=== PATIENT | male | born 1945 | race Caucasian/White ===

== ENCOUNTER 2025-01-29 12:59 | Outpatient (AMB) | payer MEDICARE, SELFPAY ==
--- NOTE | 2025-01-29 13:04 | A.OFFPC_ITS ---
Vital Signs 01/29/25 13:39 Height 5 ft 10 in Weight 203 lb 6 oz BMI 29.2 BP 118/64 Blood Pressure Location Rt brachial Position Sitting Respiration 16 Pulse 51 Pulse Source Pulse Oximeter Temp 97.6 F Temp Source Oral Pulse Oximetry (%) 96 Oxygen Delivery Method Room Air Intake Visit Reasons: DEMATOLOGY REFERRAL Intake Note: patient here for new patient visit requesting a dermatology referral. [place] Baker Required: No Allergies bimatoprost (From Lumigan) Allergy (Intermediate, Verified 01/29/25 13:34) burning Penicillins Allergy (Intermediate, Verified 01/29/25 13:34) Rash Medication List - Last Reconciled 01/29/25 by Kieran Lynne CNP albuterol sulfate 90 mcg/actuation (Ventolin HFA) 2 puffs inhalation Q6H PRN amlodipine 5 mg PO DAILY aspirin (Adult Low Dose Aspirin) 81 mg PO 3XW cetirizine (Zyrtec) 10 mg PO DAILY PRN cholecalciferol (vitamin D3) 50 mcg PO DAILY dorzolamide 2% 1 drp ophthalmic (eye) BID hydrochlorothiazide 25 mg PO DAILY magnesium gluconate (Mag-G) 54 mg PO DAILY multivitamin with minerals (Multiple Vitamin-Minerals tablet) 1 tab PO DAILY netarsudil 0.02% (Rhopressa) 1 drp ophthalmic-Right QPM omega 6-tty-psu-fish oil 1,200 (144-216) mg (Fish Oil) caps PO DAILY simvastatin 20 mg PO DAILY telmisartan 80 mg PO DAILY Tobacco use date assessed: 01/29/25 Fall risk assessment: No Falls in past year Last assessed Fall Risk: 01/29/25 Dental Screening Dental Screen Date: 01/29/25 Did you have a dental visit in the last 12 months?: Yes Did you have a dental problem in the last 6 months where you did not have access to dental care?: No Was dental information given to patient?: Patient has dentist HPI HPI Comments History of Present Illness Details 79-year-old male presents to establish c are. He admits to taking his medications as prescribed without adverse reactions. Prior PCP? - [facility], [place] Last office visit -11/2024 Last CPE/labs - 07/2024 Acute issue(s) - Reports multiple skin lesions includin g new lesion to his left lower eyelid. Was followed by Dermatology. Has an appointment to establish care with [facility] in March. Past Medical History - Hypertension, hyperlipidemia, pneumoth orax, glaucoma, cataract, low-grade COPD, diverticulitis, osteoporosis, osteopenia, arthritis both hands, multiple skin cancer, [place] both ear (wears hearing aids), ruptured appendix, Surgical History - cholecystectomy, cataract surgery both eyes Family History - Dad: CVA - MGM: DM - MGF: Cardiovascular disease - PGF: Leukemia Social History - Nonsmoker. Does not vape. Drinks 1 gla ss of wine occasionally. Denies recreational drug use - Has been making healthy dietary choice s. Walks regularly. Generally sleep well Health maintenance - Last eye exam was in 10/10/2024 in [place]. R eferred to Ophthalmology for routine eye exam - Last dental visit was in 10/2024 - Last Tdap vaccine was in 2018. Record not currently available - He is up-to-date on the shingles and p neumonia vaccines - He is up-to-date on the flu vaccines - Last colonoscopy was 3-4 years ago wit h PCP: Normal. He was told he no longer needs colonoscopy - Last dexa scan was 2-3 years ago. Dexa scan ordered Specialists Was followed by pulmonology, Dermatology, Podiatry, audiology Has an appointment with [facility] in 03/25/2025 Requests Ophthalmology and pulmonology referral [facility] Medical History (Updated 01/29/25 @ 14:29 by Kieran Lynne CNP) Ruptured appendix Pneumothorax Surgical History (Updated 01/29/25 @ 13:42 by Patricia Craig MA) Cholecystotomy with removal of foreign body from gallbladder performed Family History (Updated 01/29/25 @ 13:44 by Patricia Craig MA) Maternal Grandmother Diabetes Father Stroke (cerebrum) Maternal Grandfather Cardiovascular disease Paternal Grandfather Leukemia Social History (Updated 01/29/25 @ 13:38 by Patricia Craig MA) Housing: Apartment Patient Tobacco Use Status: Never used Tobacco e-Cigarette/Vaping Use: Never Used service: No Current occupational status: retired Current occupational exposures/hazards: No Cognitive needs: No Hearing needs: Yes Vision needs: Yes Questionnaire PHQ-9 Over the last 2 weeks, how often have you been bothered by any of the following problems? 1. Little interest or pleasure in doing things: not at all 2. Feeling down, depressed, or hopeless: not at all 3. Trouble falling or staying asleep, or sleeping too much: not at all 4. Feeling tired or having little energy: not at all 5. Poor appetite or overeating: not at all 6. Feeling bad about yourself - or that you are a failure or have let yourself or your family down: not at all 7. Trouble concentrating on things, such as reading the newspaper or watching television: not at all 8. Moving or speaking so slowly that other people could have noticed. Or the opposite - being so fidgety or restless that you have been moving around a lot more than usual: not at all 9. Thoughts that you would be better off or of hurting yourself in some way: not at all Total score: 0 Depression Screening Interpretation: Negative Depression Screening Done: Yes 26566 - PHQ-9 Billing: Yes Source: Developed by Drs. Cristian Aguayo, Amberly Gallegos, Nura [place] and colleagues, with an educational adeola from [employer]. Thrive Questionnaire Date Thrive assessed: 01/29/25 I am a: Patient What is your living situation today?: I have a steady place to live Within the past 12 months, did the food you bought not last and you didn't have the money to get more?: Never true Within the past 12 months, did you worry whether your food would run out before you got money to buy more?: Never true Do you have trouble paying for medicines?: No Do you have trouble getting transportation to medical appointments?: No Do you have trouble paying your heating and electricity bill?: No Do you have trouble taking care of your child, family member or friend?: No Do you have trouble with day-to-day activities such as bathing, preparing meals, shopping, managing finances, etc.?: No Are you currently unemployed and looking for a job?: No Are you interested in more education?: No Please select the resources that you would like help with: None Currently or been in a relationship where the following occur: No concerns reported THRIVE Score: 0 AUDIT C Alcohol Use Questionnaire (AUDIT-C) 1. How often do you have a drink containing alcohol?: Monthly or less 2. How many drinks containing alcohol do you have on a typical day when you are drinking?: 1 or 2 3. How often do you have six or more drinks on one occasion?: Never Total Score: 1 Score Reviewed/Action Taken: Yes MEGHAN-7 AMB Questionnaire MEGHAN-7 Date MEGHAN - 7 assessed: 01/29/25 Feeling nervous, anxious, or on edge: 0 = Not at all Not being able to stop or control worryin = Not at all Worrying too much about different things: 0 = Not at all Trouble relaxin = Not at all Being so restless that it is hard to sit still: 0 = Not at all Becoming easily annoyed or irritable: 0 = Not at all Feeling afraid as if something awful might happen: 0 = Not at all Total MEGHAN-7 score (0-4 normal; 5-9 mild; 10-14 moderate; 15-21 severe): 0 Source: Developed by Drs. Cristian Aguayo, Amberly Gallegos, Nura [place] and colleagues, with an educational adeola from [employer]. MEGHAN-7 Assessment Billing MEGHAN-7 Assessment Tool: MEGHAN-7 Assessment 48702 Review of Systems Const Details: Const Denies chills, Denies fatigue, Denies fever(s), Denies headache(s) and Denies weakness ENT Denies dizziness and Denies headache(s) Card Denies chest pain, Denies lightheadedness, Denies dyspnea and Denies other (Palpitations) Resp Denies cough, Denies dyspnea, Denies wheezing and Denies other ( shortness of breath) GI Denies abdominal pain, Denies melena, Denies hematochezia, Denies change in bowel habits, Denies dyspepsia and Denies nausea Denies hematuria and Denies dysuria Musc Denies abnormal gait, Denies myalgias, Denies arthralgias, Denies numbness and Denies tingling Skin/Breast Reports multiple skin lesions Neuro Denies abnormal gait, Denies dizziness, Denies headache(s), Denies memory loss, Denies numbness, Denies Sensory deficit (Neuro), Denies tingling and Denies weakness Psych Denies anxiety, Denies depression, Denies memory loss Endo Denies cold intolerance, Denies fatigue, Denies heat intolerance, Denies polydipsia and Denies polyuria Aller/Immun Denies wheezing Physical exam (Primary Care) Vital Signs: Last Vital Signs Temp 97.6 F 01/29/25 13:39 Pulse 51 01/29/25 13:39 Resp 16 01/29/25 13:39 BP 118/64 01/29/25 13:39 Pulse Ox 96 01/29/25 13:39 Oxygen Delivery Method Room Air 01/29/25 13:39 BMI result Body Mass Index 29.2 Tobacco/Smoking Status: Tobacco use Status Tobacco use date assessed 01/29/25 01/29/25 13:34 Patient Tobacco Use Status Never used Tobacco 01/29/25 13:38 e-Cigarette/Vaping Use Never Used 01/29/25 13:38 PHQ-9: PHQ-9 Score PHQ-9: Total score 0 01/29/25 13:34 Depression Screening Interpretation: Negative Thrive Assessment: Date of Thrive Assessment Date Thrive assessed 01/29/25 01/29/25 13:08 Currently or been in a relationship where the following occur: No concerns reported Const Other: General: no acute distress and well developed Nutritional Appearance: well nourished Orientation/consciousness: patient oriented x3 HENMT Head: Yes normocephalic and Yes atraumatic Eyes General: appearance normal, both eyes and all related structures Pupils: Equal, round and reactive pupils present EOM: EOMs intact bilaterally Resp Effort & Inspection: normal respiratory effort Auscultation: clear to auscultation bilaterally Cardio Rate: regular rate Rhythm: regular rhythm Heart sounds: S1 normal heart sound present, S2 normal heart sound present, no gallops, no murmurs and no rubs GI Palpation (GI): No Abdominal aortic bruit present, Soft to palpation, nontender, No hepatosplenomegaly present and No Rebound tenderness present Auscultation: normal bowel sounds General: Yes no CVA tenderness Back/Spine/Pelvis Back: no CVA tenderness Cervical Spine: cervical ROM normal and No Cervical spine tenderness Thoracic/Lumbar Spine: thoraco-lumbar ROM normal, No pain with thoraco-lumbar ROM, No thoracic spinal tenderness and No lumbar spinal tenderness Extrem General: Yes normal to inspection, No edema and No calf tenderness Skin General: warm and dry. Normal skin color. Normal skin turgor Lesions: Multiple brown-dark brown lesions to his head and trunk. Small, dark- brown lesion below the left eyelid Rashes: no rashes Trauma: no lacerations or abrasions Wounds: no wounds Nails: normal Neuro General: patient oriented x3, gait normal and no focal neuro deficit Cranial nerves: Yes Equal, round and reactive pupils present Cognition (Neuro): normal cognition Gait exam (Neuro): Normal gait present Sensory Exam: No Sensory deficit (Neuro) Psych Appearance: grossly normal Affect: normal affect Attitude: cooperative Thought process: Normal thought process present Coding Level of Care Code New Pt Level 4 (71947) Diagnoses Hypertension I10 COPD (chronic obstructive pulmonary disease) J44.9 Glaucoma H40.9 Osteopenia M85.80 Hyperlipidemia E78.5 Skin lesions L98.9 Additional Codes MEGHAN-7 Assessment Billing - MEGHAN-7 Assessment Tool: MEGHAN-7 Assessment 51303 ([id number]) PHQ-9 - 31695 - PHQ-9 Billing: Yes ([id number]) Assessment & Plan Assessment & Plan (1) Hypertension: Code(s): I10 - Essential (primary) hypertension Category: Medical Plan: Blood pressure is 118/64, within goal of less than 140/90. Continue current treatment regimen. Low-sodium diet encouraged. Advised to fast for 10-12 hours, may drink water, and perform lab work before next visit. Follow-up for a telehealth visit for labs review in 2-4 weeks. Return sooner with symptoms or concerns. Verbalized understanding and agreed with the plan. (2) COPD (chronic obstructive pulmonary disease): Code(s): J44.9 - Chronic obstructive pulmonary disease, unspecified Category: Medical Plan: No acute symptoms. Continue current treatment regimen. Was followed by pulmonology until he recently relocated to [facility]. Referred to [facility] [place]. Follow-up with symptoms or concerns. Verbalized understanding and agreed with the plan. (3) Glaucoma: Code(s): H40.9 - Unspecified glaucoma Category: Medical Plan: History of glaucoma. Last eye exam was in 10/10/2024 in [place]. Referred to Ophthalmology for routine eye exam. (4) Osteopenia: Code(s): M85.80 - Other specified disorders of bone density and structure, unspecified site Category: Medical Plan: Reports history of osteoporosis which improved to osteopenia. Last dexa scan was 2-3 years ago. Dexa scan ordered. (5) Hyperlipidemia: Code(s): E78.5 - Hyperlipidemia, unspecified Category: Medical Plan: Continue current treatment regimen. Advised to limit foods high in saturated fat and avoid foods high in trans fat. Routine exercise encouraged. Will check lipid panel levels and make changes as needed. Verbalized understanding and agreed with the plan. (6) Skin lesions: Code(s): L98.9 - Disorder of the skin and subcutaneous tissue, unspecified Category: Medical Plan: Reports multiple skin lesions including new lesion to his left lower eyelid. Was followed by Dermatology. Has an appointment to establish care with [facility] in March. He has history of multiple skin cancer. Multiple brown-dark brown lesions to his head and trunk. Small, dark-brown lesion below the left eyelid Advised to follow-up with [facility] to establish care as planned. Verbalized understanding and agreed with the plan. Orders: Orders Complete Blood Count Auto Diff Today I10 - Essential (primary) hypertension Comprehensive [place]. Panel Fast Today I10 - Essential (primary) hypertension Lipid Panel Today I10 - Essential (primary) hypertension Microalbumin, Random (w Creat) Today I10 - Essential (primary) hypertension Vitamin D 25-OH Total Today I10 - Essential (primary) hypertension XR DEXA axial skeleton Today M81.0 - Age-related osteoporosis without current pathological fracture PSA, Ultra Sensitive Today I10 - Essential (primary) hypertension TSH reflex Free T4 Today I10 - Essential (primary) hypertension UA CC w/rflx Micro + Cult Today I10 - Essential (primary) hypertension Referrals Pulmonology Referral J44.9 - Chronic obstructive pulmonary disease, unspecified Ophthalmology Referral H40.9 - Unspecified glaucoma
[2025-01-29 13:39] VITALS: BP 118/64; PULSE 51; RESP 16; TEMP 36.4; O2SAT 96; BMI 29.2
--- OUTSIDE RECORDS SUMMARY | 2025-01-29 14:01 | XMS_ITS | Clinical Summary ---
Author Organization [facility] Address [address] [facility] [address] [place] [address] Phone Care Team Providers Care Clinical Trial Specialist Name Role Phone Anand Sarmiento MD Primary Care Provider Social History Tobacco Use Types Packs/Day Years Used Date Smoking Tobacco: Never Education Answer Date Recorded Are you interested in more education? Not on linden e 11/05/2022 Are you concerned about learning? Not on file 11/05/2022 No 11/05/2022 No 11/05/2022 Digital Access Answer Date Recorded No 12/07/2022 No 12/07/2022 No 12/07/2022 Reliable internet access at home? Not on file 12/07/2022 Device with a working camera? Not on file Sex and Gender Information Value Date Recorded Sex Assigned at Not on file Legal Sex Male 7:04 PM EST Gender Identity Not on file Sexual Orientation Not on file Last Filed Vital Signs Vital Sign Reading Time Taken Comments Blood Pressure 114/80 12/14/2017 10:45 AM EDT Pulse 56 12/14/2017 10:45 AM EDT Temperature 36.7 C (98 F) 12/14/2017 10:45 AM EDT Respiratory Rate 16 12/14/2017 10:45 AM EDT Oxygen Saturation - - Inhaled Oxygen Concentration - - Weight 89.4 kg (197 lb) 12/14/2017 10:45 AM EDT Height 180.3 cm (5' 11 ) 12/14/2017 10:45 AM EDT Body Mass Index 27.48 12/14/2017 10:45 AM EDT Plan of Treatment Not on file Medical Devices Not on file Insurance MEDICARE PART A & B [facility] MEDICARE SUPPLEMENT Member Subscriber Plan / Payer ( fective 2017-Present) Name:Yordan Velez Relation to Subscriber:Self Name:Yordan Velez Payer ID:[id number] (NAIC) Group ID:Not on file Type:adRise Address: [facility] [id number] [place] [phone] MEDICARE PART A & B [facility] MEDICARE SUPPLEMENT MEDICARE PART A & B MEDICARE SUPPLEMENT MEDICARE PART A & B MEDICARE SUPPLEMENT MEDICARE PART A & B [facility] MEDICARE SUPPLEMENT MEDICARE PART A & B [facility] MEDICARE SUPPLEMENT MEDICARE PART A & B MEDICARE SUPPLEMENT MEDICARE PART A & B [facility] MEDICARE SUPPLEMENT MEDICARE PART A & B [facility] MEDICARE SUPPLEMENT Care Teams Clinical Trial Specialist Relationship Specialty Start Date End Date Anand Sarmiento MD [address] [place] [address] PCP - General 04/20/19 Additional Source Comments The information contained in this document represents components of the legal health record. It is not the complete legal health record.[facility]
--- OUTSIDE RECORDS SUMMARY | 2025-01-29 14:02 | XMS_ITS | Clinical Summary ---
Author Organization [facility] Address [address] [place] [id number] Care Team Providers Care Referral Rn Name Role Phone Pcp, No Primary Care Provider Unavailabl e Social History Tobacco Use Types Packs/Day Years Used Date Smoking Tobacco: Never Assessed Sex and Gender Information Value Date Recorded Sex Assigned at Not on file Legal Sex Male 4:20 PM EDT Gender Identity Not on file Sexual Orientation Not on file Plan of Treatment Upcoming Encounters Date Type Department Care Team (Late st Contact Info) Description 03/08/2025 1:30 PM EDT Office Visit [facility] [address] [place] [phone] Imani Carey, DO [address] [place] [address] Health Maintenance Due Date Last Done Comments DTaP/Tdap/Td Vaccines (1 - Tdap) 02/17/1963 Pneumococcal Vaccines 50+ (1 of 1 - PCV) 02/17/1994 Zoster (Shingles) Vaccine (1 of 2) 02/17/1994 RSV Vaccine 60 years and old er and Patients (1 - 1-dose 75+ series) 02/17/2019 COVID-19 Vaccine ( - 2023-2 5 season) 2024 Influenza Vaccine 02/08/2025 Hepatitis B Vaccines Aged Out No long er eligible based on patient's age to complete this topic Insurance MEDICARE PART A & B [facility] Care Teams Referral Rn Relationship Specialty Start Date End Date Pcp, No PCP - General General Medicine 12/21/24
--- OUTSIDE RECORDS SUMMARY | 2025-01-29 14:02 | XMS_ITS ---
Author Name [facility] Organization Unknown Care Team Organization Name Specialty Phone Email Start Date End Da [facility] NO PCP Primary Care 12/22/2024
== END 2025-01-29 14:19 | disposition home or self-care (01) ==
LOC: HO.HMCFM 13:00
PROVIDERS: PCP Nurse Practitioner Family; Visit Provider Nurse Practitioner Family
DX: I10 Essential (primary) hypertension (principal); J44.9 Chronic obstructive pulmonary disease, unspecified; H40.9 Unspecified glaucoma; M85.80 Other specified disorders of bone density and structure, unspecified site; E78.5 Hyperlipidemia, unspecified; L98.9 Disorder of the skin and subcutaneous tissue, unspecified

== ENCOUNTER → 2025-01-29 12:59 | Outpatient (BNVA) | payer MEDICARE, SELFPAY | PROVIDERS: PCP Nurse Practitioner Family; Visit Provider Nurse Practitioner Family | DX: I10 Essential (primary) hypertension (principal); J44.9 Chronic obstructive pulmonary disease, unspecified; M85.80 Other specified disorders of bone density and structure, unspecified site; E78.5 Hyperlipidemia, unspecified; L98.9 Disorder of the skin and subcutaneous tissue, unspecified; H40.9 Unspecified glaucoma | CPT/HCPCS: 96127; 99202 ==

== ENCOUNTER 2025-01-31 08:28 | Outpatient (REF) | payer MEDICARE, SELFPAY ==
--- OUTSIDE RECORDS SUMMARY | 2025-01-31 08:49 | XMS_ITS | Clinical Summary ---
Author Organization [facility] Address [address] [place] [id number] Care Team Providers Care Property Analyst Name Role Phone Pcp, No Primary Care [...] Description 03/08/2025 1:30 PM EDT Office Visit [facility] [address] [place] [phone] Imani Carye, DO [address] [place] [address] Health Maintenance Due Date Last Done Comments [...] topic Insurance MEDICARE PART A & B [facility] Care Teams Property Analyst Relationship Specialty Start Date End Date Pcp, No PCP - General General Medicine 12/21/24
--- OUTSIDE RECORDS SUMMARY | 2025-01-31 08:49 | XMS_ITS | Clinical Summary ---
Author Organization [facility] Address [address] [facility] [address] [phone] Phone Care Team Providers Care Instruction Librarian Name Role Phone Anand Sarmiento MD Primary [...] file Insurance MEDICARE PART A & B [facility] MEDICARE SUPPLEMENT Member Subscriber Plan / Payer ( fective 2017-Present) Name:Yordan Velez Relation to Subscriber:Self Name:Yordan Velez Payer ID:[id number] (NAIC) Group ID:Not on file Type:[employer] Address: [facility] [id number] [place] [phone] MEDICARE PART A & B [facility] MEDICARE SUPPLEMENT MEDICARE PART A & B MEDICARE SUPPLEMENT MEDICARE PART A & B MEDICARE SUPPLEMENT MEDICARE PART A & B [facility] MEDICARE SUPPLEMENT MEDICARE PART A & B [facility] MEDICARE SUPPLEMENT MEDICARE PART A & B MEDICARE SUPPLEMENT MEDICARE PART A & B [facility] MEDICARE SUPPLEMENT MEDICARE PART A & B [facility] MEDICARE SUPPLEMENT Care Teams Instruction Librarian Relationship Specialty Start Date End Date Anand Sarmiento MD [address] [place] [address] PCP - General 04/20/19 Additional Source Comments The information contained in this document represents components of the legal health record. It is not the complete legal health record.[facility]
[2025-01-31 11:16] LABS: MANUAL DIFF FLAG NO
[2025-01-31 11:25] LABS: Appearance Urine Clear; Glucose Urine UA Negative (Negative); PH 7.0 (5.0-9.0); Specific Gravity - Urine 1.015 (1.005-1.025)
[2025-01-31 11:30] LABS: Hematocrit 43.5 % (42.0-52.0); Hemoglobin 14.7 g/dl (14.0-18.0); Imm Gran Abs Auto 0.02 X10*3/uL (0.00-0.03); Imm Gran Pct Auto 0.2 % (0.0-0.4); Lymphocytes Absolute Auto 3.7 X10*3/uL (1.2-4.9); Mean Corpuscular HGB Conc 33.8 g/dl (31.0-36.0); Mean Corpuscular Hemoglobin 29.6 pg (27.0-33.0); Mean Corpuscular Volume 87.5 fL (80.0-98.0); NRBC Abs Auto 0.000 X10*3/uL (0.0-0.012); NRBC Pct Auto 0.0 /100WBC (0.0-0.2); Platelet Count 309 X10*3/uL (160-400); Red Blood Count 4.97 X10*6/uL (4.60-5.80); White Blood Count 9.1 X10*3/uL (4.8-10.8)
[2025-01-31 11:56] LABS: Alanine Aminotransferase 24 U/L (0-40); Albumin Level 4.3 g/dL (3.5-5.0); Alkaline Phosphatase 75 U/L (39-117); Anion Gap 13 (12-20); Aspartate Amino Transferase 28 U/L (5-37); Blood Urea Nitrogen 17 mg/dL (9-16); Calcium 9.4 mg/dL (8.4-10.2); Carbon Dioxide 28 mmol/L (22-29); Chloride 102 mmol/L (96-108); Cholesterol 153 mg/dL (<200); Estimated Glomerular Filt Rate > 60; HDL Cholesterol 44 mg/dL (>40); Potassium 3.8 mmol/L (3.3-5.1); Sodium 139 mmol/L (135-145); Total Protein 7.0 g/dL (6.5-8.0); Triglycerides 90 mg/dL (<150)
[2025-01-31 12:00] LABS: Microalbum/Creatinine Ratio Ur 5.4 ug/mg cr (<30)
[2025-02-06 02:39] LABS: PSA, Ultra Sensitive 2.70 ng/mL
== END 2025-01-31 08:29 | disposition home or self-care (01) ==
LOC: HO.WFDLDS 08:28
PROVIDERS: Visit Provider Nurse Practitioner Family
DX: I10 Essential (primary) hypertension (principal)
CPT/HCPCS: 36415; 80053; 80061; 81003; 82043; 82306; 82570; 84153; 84443; 85025

== ENCOUNTER 2025-02-15 12:56 | Outpatient (AMB) | payer MEDICARE, SELFPAY ==
--- NOTE | 2025-02-15 12:47 | A.OFFPC_ITS ---
Intake Visit Reasons: telehealth bloodwork fu Intake Note: Yordan presents in the office today for a telehealth follow up to his recent lab results. Allergies bimatoprost (From Lumigan) Allergy (Intermediate, Verified 02/15/25 12:48) burning Penicillins Allergy (Intermediate, Verified 02/15/25 12:48) Rash Tobacco use date assessed: 02/15/25 Fall risk assessment: No Falls in past year Last assessed Fall Risk: 02/15/25 Dental Screening Dental Screen Date: 02/15/25 Did you have a dental visit in the last 12 months?: Yes Did you have a dental problem in the last 6 months where you did not have access to dental care?: No Was dental information given to patient?: Patient has dentist HPI HPI Comments History of Present Illness Details 79-year-old male presents for telehealth visit for review of recent lab results. He admits to taking his medications as prescribed without adverse reactions. He offers no complaints and denies acute symptoms at this time. [facility] Medical History (Updated 02/15/25 @ 13:51 by Kieran Lynne CNP) Ruptured appendix Pneumothorax Surgical History (Updated 01/29/25 @ 13:42 by Patricia Craig MA) Cholecystotomy with removal of foreign body from gallbladder performed Family History Maternal Grandmother Diabetes Father Stroke (cerebrum) Maternal Grandfather Cardiovascular disease Paternal Grandfather Leukemia Social History (Updated 02/15/25 @ 12:51 by Stefani Martinez MA) Housing: Apartment Alcohol intake: current Patient Tobacco Use Status: Never used Tobacco e-Cigarette/Vaping Use: Never Used Second Hand Smoke Exposure: No service: No Current occupational status: retired Current occupational exposures/hazards: No Cognitive needs: No Hearing needs: Yes Vision needs: Yes Questionnaire Thrive Questionnaire Date Thrive assessed: 01/22/25 I am a: Patient What is your living situation today?: I have a steady place to live Within the past 12 months, did the food you bought not last and you didn't have the money to get more?: Never true Within the past 12 months, did you worry whether your food would run out before you got money to buy more?: Never true Do you have trouble paying for medicines?: No Do you have trouble getting transportation to medical appointments?: No Do you have trouble paying your heating and electricity bill?: No Do you have trouble taking care of your child, family member or friend?: No Do you have trouble with day-to-day activities such as bathing, preparing meals, shopping, managing finances, etc.?: No Are you currently unemployed and looking for a job?: No Are you interested in more education?: No Please select the resources that you would like help with: None Currently or been in a relationship where the following occur: No concerns reported THRIVE Score: 0 MEGHAN-7 AMB Questionnaire MEGHAN-7 Date MEGHAN - 7 assessed: 01/29/25 Source: Developed by Drs. Cristian Aguayo, Amberly Gallegos, Nura Trimble and colleagues, with an educational adeola from [employer]. Review of Systems Const Details: Denies chills, Denies fatigue, Denies fever(s), Denies headache(s) and Denies weakness Cardiac Denies chest pain, Denies claudication, Denies leg edema, Denies lightheadedness, Denies palpitations, Denies dyspnea, Denies dyspnea on exertion, Denies orthopnea and Denies other (Loss of consciousness) Resp Denies cough, Denies excessive phlegm production, Denies dyspnea, Denies dyspnea on exertion, Denies snoring and Denies wheezing Physical exam (Primary Care) Tobacco/Smoking Status: Tobacco use Status Tobacco use date assessed 02/15/25 02/15/25 12:55 Patient Tobacco Use Status Never used Tobacco 02/15/25 12:51 e-Cigarette/Vaping Use Never Used 02/15/25 12:51 Thrive Assessment: Date of Thrive Assessment Date Thrive assessed 01/22/25 02/15/25 12:47 Currently or been in a relationship where the following occur: No concerns reported Const Other: Patient is alert and oriented x3 Telehealth Telehealth Telehealth Platform: Telephone Location of provider rendering services: practice address Location of patient: address on file Patient Identification confirmed using: Name, : Yes Telehealth method: voice only Patient verbally consented to treatment: Yes Patient verbally consented to billing insurance company: Yes Patient informed of any privacy concerns related to visit: Yes Coding Level of Care Code Tele Est Pt Level 3 (05897) Diagnoses Elevated fasting glucose R73.01 Hyperbilirubinemia E80.6 Time Spent (min) 15 Assessment & Plan Assessment & Plan (1) Elevated fasting glucose: Code(s): R73.01 - Impaired fasting glucose Category: Medical Plan: Recent fasting glucose is elevated, 117. Healthy diet and routine exercise encouraged. Fast for 10-12 hours, may drink water, and perform fasting blood work before next visit. Follow-up for telehealth visit in 2-3 weeks. Verbalized understanding and agreed with the plan. (2) Hyperbilirubinemia: Code(s): E80.6 - Other disorders of bilirubin metabolism Category: Medical Plan: Recent bilirubin level is elevated, 1.6. Liver enzymes are normal. 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 Will recheck bilirubin level and make changes as needed. Verbalized understanding and agreed with the plan. Orders: Orders Glucose Fasting Today R73.01 - Impaired fasting glucose Bilirubin Total Today E80.6 - Other disorders of bilirubin metabolism
--- OUTSIDE RECORDS SUMMARY | 2025-02-15 12:58 | XMS_ITS | Clinical Summary ---
Author Organization [facility] Address [address] [employer] [facility] [address] [place] [address] Phone Care Team Providers Care Comb Capper Name Role Phone Anand Sarmiento MD Primary [...] file Insurance MEDICARE PART A & B [facility] MEDICARE SUPPLEMENT Member Subscriber Plan / Payer ( fective 2017-Present) Name:Yordan Velez Relation to Subscriber:Self Name:Yordan Velez Payer ID:[id number] (NAIC) Group ID:Not on file Type:Go Vocab Address: [facility] [id number] [place] [id number] MEDICARE PART A & B [facility] MEDICARE SUPPLEMENT [facility] Address: [facility] [id number] [place] [address] MEDICARE PART A & B MEDICARE SUPPLEMENT [facility] Address: [facility] [id number] [place] [address] MEDICARE PART A & B MEDICARE SUPPLEMENT MEDICARE PART A & B [facility] MEDICARE SUPPLEMENT [facility] Address: [place] [address] MEDICARE PART A & B [facility] MEDICARE SUPPLEMENT MEDICARE PART A & B MEDICARE SUPPLEMENT MEDICARE PART A & B [facility] MEDICARE SUPPLEMENT MEDICARE PART A & B [facility] MEDICARE SUPPLEMENT Care Teams Comb Capper Relationship Specialty Start Date End Date Anand Sarmiento MD [address] [place] [address] PCP - General 04/20/19 Additional Source Comments The information contained in this document represents components of the legal health record. It is not the complete legal health record.[facility]
--- OUTSIDE RECORDS SUMMARY | 2025-02-15 12:58 | XMS_ITS | Clinical Summary ---
Author Organization [facility] Address [address] [place] [address] Care Team Providers Care Straddle Truck Operator Name Role Phone Pcp, No Primary Care [...] Description 03/08/2025 1:30 PM EDT Office Visit [facility] [address] [place] [phone] Imani Carey, DO [address] [place] [address] Health Maintenance Due Date Last Done Comments [...] topic Insurance MEDICARE PART A & B [facility] Care Teams Straddle Truck Operator Relationship Specialty Start Date End Date Pcp, No PCP - General General Medicine 12/21/24
== END 2025-02-15 14:00 | disposition home or self-care (01) ==
LOC: HO.HMCFM 12:56
PROVIDERS: PCP Nurse Practitioner Family; Visit Provider Nurse Practitioner Family
DX: R73.01 Impaired fasting glucose (principal); E80.6 Other disorders of bilirubin metabolism

== ENCOUNTER 2025-02-19 08:03 | Outpatient (REF) | payer MEDICARE, SELFPAY ==
--- OUTSIDE RECORDS SUMMARY | 2025-02-19 08:08 | XMS_ITS | Clinical Summary ---
Author Organization [facility] Address [address] [facility] [address] [place] [address] Phone Care Team Providers Care Therapeutic Consultant Name Role Phone Anadn Sarmiento MD Primary Care Provider Social History [...] file Insurance MEDICARE PART A & B [facility] MEDICARE SUPPLEMENT Member Subscriber Plan / Payer ( fective 2017-Present) Name:Yordan Velez Relation to Subscriber:Self Name:Yordan Velez Payer ID:[id number] (NAIC) Group ID:Not on file Type:[employer] Address: [facility] [id number] [place] [id number] MEDICARE PART A & B [facility] MEDICARE SUPPLEMENT [facility] Address: [facility] [id number] [place] [address] MEDICARE PART A & B MEDICARE SUPPLEMENT [facility] Address: [facility] [id number] [place] [address] MEDICARE PART A & B MEDICARE SUPPLEMENT MEDICARE PART A & B [facility] MEDICARE SUPPLEMENT [facility] Address: [place] [address] MEDICARE PART A & B [facility] MEDICARE SUPPLEMENT MEDICARE PART A & B MEDICARE SUPPLEMENT MEDICARE PART A & B [facility] MEDICARE SUPPLEMENT MEDICARE PART A & B [facility] MEDICARE SUPPLEMENT Care Teams Therapeutic Consultant Relationship Specialty Start Date End Date Anand Sarmiento MD [address] [place] [address] PCP - General 04/20/19 Additional Source Comments The information contained in this document represents components of the legal health record. It is not the complete legal health record.[facility]
--- OUTSIDE RECORDS SUMMARY | 2025-02-19 08:09 | XMS_ITS | Clinical Summary ---
Author Organization [facility] Address [address] [place] [address] Care Team Providers Care Wind Turbine Mechanic Name Role Phone Pcp, No Primary Care [...] Description 03/08/2025 1:30 PM EDT Office Visit [facility] [address] [place] [phone] Imani Carey, DO [address] [place] [address] Health Maintenance Due Date Last Done Comments [...] topic Insurance MEDICARE PART A & B [facility] Care Teams Wind Turbine Mechanic Relationship Specialty Start Date End Date Pcp, No PCP - General General Medicine 12/21/24
== END 2025-02-19 08:04 | disposition home or self-care (01) ==
LOC: HO.WFDLDS 08:03
PROVIDERS: Visit Provider Nurse Practitioner Family
DX: R73.01 Impaired fasting glucose (principal); E80.6 Other disorders of bilirubin metabolism
CPT/HCPCS: 36415; 82247; 82947

== ENCOUNTER 2025-03-18 13:47 | Outpatient (AMB) | payer MEDICARE, SELFPAY ==
--- NOTE | 2025-03-18 13:43 | MHC.PC.OV ---
Intake Visit Reasons: Tele 2-3 wks labs review Intake Note: patient here for 2-3 wks Telehealth follow up for lab review Fueler Required: No Allergies bimatoprost (From Lumigan) Allergy (Intermediate, Verified 03/18/25 13:43) burning Penicillins Allergy (Intermediate, Verified 03/18/25 13:43) Rash Tobacco use date assessed: 03/18/25 Fall risk assessment: No Falls in past year Last assessed Fall Risk: 03/18/25 Dental Screening Dental Screen Date: 03/18/25 Did you have a dental visit in the last 12 months?: Yes Did you have a dental problem in the last 6 months where you did not have access to dental care?: No Was dental information given to patient?: Patient has dentist HPI HPI Comments History of Present Illness Details 80-year-old male, accompanied by his , presents for a telehealth visit for review of recent lab results. He admits to taking his medications as prescribed without adverse reactions. He notes that he has been making healthy lifestyle changes. He offers no complaints and denies acute symptoms at this time. [facility] Medical History (Updated 02/15/25 @ 13:51 by Kieran Lynne CNP) Ruptured appendix Pneumothorax Surgical History (Updated 01/29/25 @ 13:42 by Patricia Craig MA) Cholecystotomy with removal of foreign body from gallbladder performed Family History Maternal Grandmother Diabetes Father Stroke (cerebrum) Maternal Grandfather Cardiovascular disease Paternal Grandfather Leukemia Social History (Updated 02/15/25 @ 12:51 by Stefani Martinez MA) Housing: Apartment Alcohol intake: current Patient Tobacco Use Status: Never used Tobacco e-Cigarette/Vaping Use: Never Used Second Hand Smoke Exposure: No service: No Current occupational status: retired Current occupational exposures/hazards: No Cognitive needs: No Hearing needs: Yes Vision needs: Yes Questionnaire Thrive Questionnaire Date Thrive assessed: 01/29/25 I am a: Patient What is your living situation today?: I have a steady place to live Within the past 12 months, did the food you bought not last and you didn't have the money to get more?: Never true Within the past 12 months, did you worry whether your food would run out before you got money to buy more?: Never true Do you have trouble paying for medicines?: No Do you have trouble getting transportation to medical appointments?: No Do you have trouble paying your heating and electricity bill?: No Do you have trouble taking care of your child, family member or friend?: No Do you have trouble with day-to-day activities such as bathing, preparing meals, shopping, managing finances, etc.?: No Are you currently unemployed and looking for a job?: No Are you interested in more education?: No Please select the resources that you would like help with: None Currently or been in a relationship where the following occur: No concerns reported THRIVE Score: 0 MEGHAN-7 AMB Questionnaire MEGHAN-7 Date MEGHAN - 7 assessed: 01/29/25 Source: Developed by Drs. Cristian Aguayo, Amberly Gallegos, Nura Trimble and colleagues, with an educational adeola from [employer]. Review of Systems Const Details: Denies chills, Denies fatigue, Denies fever(s), Denies headache(s) and Denies weakness Cardiac Denies chest pain, Denies claudication, Denies leg edema, Denies lightheadedness, Denies palpitations, Denies dyspnea, Denies dyspnea on exertion, Denies orthopnea and Denies other (Loss of consciousness) Resp Denies cough, Denies excessive phlegm production, Denies dyspnea, Denies dyspnea on exertion, Denies snoring and Denies wheezing Physical exam (Primary Care) Tobacco/Smoking Status: Tobacco use Status Tobacco use date assessed 03/18/25 03/18/25 13:45 Patient Tobacco Use Status Never used Tobacco 03/18/25 13:45 e-Cigarette/Vaping Use Never Used 03/18/25 13:45 Thrive Assessment: Date of Thrive Assessment Date Thrive assessed 01/29/25 03/18/25 13:45 Currently or been in a relationship where the following occur: No concerns reported Const Other: Patient is alert and oriented x3 Telehealth Telehealth Telehealth Platform: Telephone Location of provider rendering services: practice address Location of patient: address on file Patient Identification confirmed using: Name, : Yes Telehealth method: voice only Patient verbally consented to treatment: Yes Patient verbally consented to billing insurance company: Yes Patient informed of any privacy concerns related to visit: Yes Coding Level of Care Code Tele Est Pt Level 3 (79562) Diagnoses Elevated fasting glucose R73.01 Hyperbilirubinemia E80.6 Time Spent (min) 15 Assessment & Plan Assessment & Plan (1) Elevated fasting glucose: Code(s): R73.01 - Impaired fasting glucose Category: Medical Plan: Recent fasting glucose is slightly elevated, 103, previous level was 117. Routine exercise and healthy diet, including low carbs encouraged. Will check A1c. Follow-up in 1 month. Verbalized understanding and agreed with the plan. (2) Hyperbilirubinemia: Code(s): E80.6 - Other disorders of bilirubin metabolism Category: Medical Plan: Recent total bilirubin is elevated, 1.5, previous level was 1.6. Gilbert syndrome is likely. Will monitor liver enzyme periodically or as needed. Verbalized understanding and agreed with the plan.
--- OUTSIDE RECORDS SUMMARY | 2025-03-18 16:03 | XMS_ITS | Clinical Summary ---
Author Organization [facility] Address [address] [place] [address] Care Team Providers Care Reservoir Engineer Name Role Phone Pcp, No Primary Care Provider Unavailabl e Encounters Date Type Department Care Team Description 03/12/2025 Telephone [facility] [place] [address] [place] [address] Pcp, No 03/07/2025 Telephone [facility] [place] [address] [place] [address] Pcp, No from Last 3 Months Social History Tobacco Use Types Packs/Day Years Used Date Smoking Tobacco: Never Assessed Sex and Gender Information Value Date Recorded Sex Assigned at Not on file Legal Sex Male 4:20 PM EDT Gender Identity Not on file Sexual Orientation Not on file Plan of Treatment Health Maintenance Due Date Last Done Comments Advance Care Planning 1945 DTaP/Tdap/Td Vaccines (1 - Tdap) 02/17/1963 Pneumococcal Vaccines 50+ (1 of 1 - PCV) 02/17/1994 Zoster (Shingles) Vaccine (1 of 2) 02/17/1994 RSV Vaccine 60 years and old er and Patients (1 - 1-dose 75+ series) 02/17/2019 Influenza Vaccine 02/08/2025 COVID-19 Vaccine ( - 2023-2 5 season) 2025 Hepatitis B Vaccines Aged Out No long er eligible based on patient's age to complete this topic Insurance MEDICARE PART A & B [facility] Care Teams Reservoir Engineer Relationship Specialty Start Date End Date Pcp, No PCP - General General Medicine 12/21/24
--- OUTSIDE RECORDS SUMMARY | 2025-03-18 16:03 | XMS_ITS | Clinical Summary ---
Author Organization [facility] Address [address] [employer] [facility] [address] [place] [address] Phone Care Team Providers Care Materials Recycler Name Role Phone Anand Sarmiento MD Primary [...] file Insurance MEDICARE PART A & [place] [address] [place] [address] MEDICARE SUPPLEMENT MEDICARE PART A & B [facility] MEDICARE SUPPLEMENT MEDICARE PART A & B MEDICARE SUPPLEMENT MEDICARE PART A & B MEDICARE SUPPLEMENT MEDICARE PART A & B [facility] MEDICARE SUPPLEMENT MEDICARE PART A & B [facility] MEDICARE SUPPLEMENT MEDICARE PART A & B [facility] MEDICARE SUPPLEMENT MEDICARE PART A & B Member Subscriber Plan / Payer (Ef fective 2009-Present) Name:Yordan Velez Member ID:[id number] Relation to Subscriber:Self Name:Yordan Velez Subscriber ID:[id number] Payer ID:[id number] Group ID:Not on file Type:Medicare Address: [employer] [address] MEDICARE SUPPLEMENT MEDICARE PART A & B [facility] MEDICARE SUPPLEMENT Care Teams Materials Recycler Relationship Specialty Start Date End Date [place], Anand Blaine, MD [address] [facility] [address] [place] [address] PCP - General 04/20/19 Additional Source Comments The information contained in this document represents components of the legal health record. It is not the complete legal health record.[facility]
== END 2025-03-18 14:43 | disposition home or self-care (01) ==
LOC: HO.HMCFM 13:47
PROVIDERS: PCP Nurse Practitioner Family; Visit Provider Nurse Practitioner Family
DX: R73.01 Impaired fasting glucose (principal); E80.6 Other disorders of bilirubin metabolism

== ENCOUNTER 2025-03-28 14:20 | Outpatient (REF) | payer MEDICARE, SELFPAY ==
--- NOTE | ~2025-03-28 | MM_ITS ---
EXAMINATION: DXA BONE DENSITY AXIAL HISTORY: M81.0 - Age-related osteoporosis without current pathological fracture TECHNIQUE: Ventrix Dual energy absorptiometry (DEXA) of the lumbar spine, total left hip, and femoral neck was performed. COMPARISON: There are no prior studies for comparison. FINDINGS: The bone mineral density of the lumbar spine is 1.043 g/cm2, corresponding to a T-score of -1.4, and a Z-score of -1.1. This is indicative of osteopenia. The bone mineral density of the left total hip is 0.858 g/cm2, corresponding to a T-score of -1.7, and a Z-score of -0.8. This is indicative of osteopenia. The bone mineral density of the left femoral neck is 0.821 g/cm2, corresponding to a T-score of -1.9, and a Z-score of -0.6. This is indicative of osteopenia. FRACTURE RISK: The FRAX index suggests a risk of major osteoporotic fracture of 18.7%, and of hip fracture 13.7%. MM/XR DEXA axial skeleton IMPRESSION: Based on bone mineral density, and according to World Health Organization (WHO) criteria, the diagnosis is consistent with osteopenia. Statistically, 68% of repeat scans fall within 1 SD (+/- 0.010 g/cm2 for AP spine L1-L4) and 1 SD (+/- 0.012 g/cm2 for femur total) FRAX is a trademark of the [employer]'s [employer] Metabolic Bone Disease, a World Health Organization (WHO) Collaborating Center. Electronically signed by: Cristian Jones MD 03/28/2025 02:56 PM EDT
--- OUTSIDE RECORDS SUMMARY | 2025-03-28 16:08 | XMS_ITS | Clinical Summary ---
Author Organization [facility] Address [address] [place] [address] Care Team Providers Care Sustainable Agriculture Faculty Name Role Phone Pcp, No Primary Care Provider Unavailabl e Encounters Date Type Department Care Team Description 03/12/2025 Telephone [facility] [place] [address] [place] [address] Pcp, No 03/07/2025 Telephone [facility] [place] [address] [place] [address] Pcp, No from Last 3 [...] topic Insurance MEDICARE PART A & B [facility] Care Teams Sustainable Agriculture Faculty Relationship Specialty Start Date End Date Pcp, No PCP - General General Medicine 12/21/24
--- OUTSIDE RECORDS SUMMARY | 2025-03-28 16:08 | XMS_ITS | Clinical Summary ---
Author Organization [facility] Address [address] [employer] [facility] [address] [place] [address] Phone Care Team Providers Care Contact Lens Edge Buffer Name Role Phone Anand Sarmiento MD Primary [...] file Insurance MEDICARE PART A & [place] [address] [place] [address] MEDICARE SUPPLEMENT MEDICARE PART A & B [facility] MEDICARE SUPPLEMENT MEDICARE PART A & B MEDICARE SUPPLEMENT MEDICARE PART A & B MEDICARE SUPPLEMENT MEDICARE PART A & B [facility] MEDICARE SUPPLEMENT MEDICARE PART A & B [facility] MEDICARE SUPPLEMENT MEDICARE PART A & B [facility] MEDICARE SUPPLEMENT MEDICARE PART A & B Member Subscriber Plan / Payer (Ef fective 2009-Present) Name:Yordan Velez Member ID:[id number] Relation to Subscriber:Self Name:Yordan Velez Subscriber ID:[id number] Payer ID:[id number] Group ID:Not on file Type:Medicare Address: [employer] [address] MEDICARE SUPPLEMENT MEDICARE PART A & B [facility] MEDICARE SUPPLEMENT Care Teams Contact Lens Edge Buffer Relationship Specialty Start Date End Date [place], Anand Blaine, MD [address] [facility] [address] [place] [address] PCP - General 04/20/19 Additional Source Comments The information contained in this document represents components of the legal health record. It is not the complete legal health record.[facility]
== END 2025-03-28 14:21 | disposition home or self-care (01) ==
LOC: HO.MAMMO 14:20
PROVIDERS: PCP Nurse Practitioner Family; Visit Provider Nurse Practitioner Family
DX: M81.0 Age-related osteoporosis without current pathological fracture (principal)
CPT/HCPCS: 77080

== ENCOUNTER → 2025-03-28 14:21 | Outpatient (BNV) | payer MEDICARE, SELFPAY | PROVIDERS: PCP Nurse Practitioner Family; Visit Provider Radiology Diagnostic Radiology | DX: M81.0 Age-related osteoporosis without current pathological fracture (principal) | CPT/HCPCS: 77080 ==

== ENCOUNTER 2025-04-23 08:26 | Outpatient (AMB) | payer MEDICARE, SELFPAY ==
--- OUTSIDE RECORDS SUMMARY | 2024-09-07 05:02 | XMS_ITS ---
Author Organization [address] [place] [address] [address] [facility] Address [address] [facility] [place], [place] [id number] Care Team Providers Care Recreation Professor Name Role Phone MANJITLORI Primary Care Provider SASHA VELÁSQUEZ [phone] REASON FOR VISIT increase Amlodopine Medications Medication SIG (Take, Route, Frequency, Duration) Notes Start Date End Date Status Amlodipine Besylate 5 MG 1 tablet Orally Once a day for 90 days 09/04/2024 Active Encounters Encounter Location Date Provider Diagnosis [id number] [address] [place], [place] [id number] 09/07/2024 SASHA VELÁSQUEZ Essential (primary) hypertension I10 Assessments Encounter Date Diagnosis (ICD Code) Assessment Notes Treatment Notes Treatment Clinical Notes Section Notes 09/07/2024 Essential (primary) hypertension (ICD-10 - I10) Plan Of Treatment Medication Medication Name Sig Start Date Stop Date Notes Amlodipine Besylate 5 MG 1 tablet Orally Once a day for 90 days 09/04/2024 Progress Notes * Yordan VELEZ TDOB:1945 (79 yo M)Acc No.[id number]:09/07/2024 Patient: Yordan QUINTERO :1945 A ge:79 Y S ex:Male [place] [address] * Refills Refill Amlodipine Besylate Tablet, 5 MG, Orally, 90 Tablet, 1 tablet, Once a day, 90 days, Refills=3 * true * Date: Generated for Tommy read/Wang/Idania on: 08:47 AM EDT
--- OUTSIDE RECORDS SUMMARY | 2024-10-29 04:38 | XMS_ITS ---
Author Organization [address] [place] [address] 89[address] [facility] Address [address] [facility] [address] [place], [place] [id number] Care Team Providers Care Sales Donor Recruitment Representative Name Role Phone LORI SARAVIA Primary Care Provider [phone] SASHA VELÁSQUEZ Unavailable [phone] HUSSEIN GUPTA Unavailable [phone] REASON FOR VISIT Albuterol Refill Medications Medication SIG (Take, Route, Frequency, Duration) Notes Start Date End Date Status Albuterol Sulfate 108 (90 Base) MCG/ACT 1 puff as needed Inhalation every 4 hrs for 30 days verbal orders per Dr. Gupta Active Encounters Encounter Location Date Provider Diagnosis [id number] [address] [place] [address] 10/29/2024 HUSSEIN GUPTA Plan Of Treatment Medication Medication Name Sig Start Date Stop Date Notes Albuterol Sulfate 108 (90 Base) MCG/ACT 1 puff as needed Inhalation every 4 hrs for 30 days verbal orders per Dr. Gupta Progress Notes * Yordan VELEZ TDOB:1945 (79 yo M)Acc No.[id number]:10/29/2024 Patient: Yordan QUINTERO :1945 A ge:79 Y S ex:Male [place] [address] * Refills Refill Albuterol Sulfate Aerosol Powder Breath Activated, 108 (90 Base) MCG/ACT, Inhalation, 1, 1 puff as needed, every 4 hrs, 30 days, Refills=3 * true * Date: Generated for Tommy read/Wang/Idania on: 08:47 AM EDT
--- OUTSIDE RECORDS SUMMARY | 2024-11-02 12:26 | XMS_ITS ---
Author Organization [address] [place] [address] [address] [facility] Address [address] [facility] [address] [place], [place] [id number] Care Team Providers Care Csr Name Role Phone MANJITLORI Pena Primary Care Provider SASHA VELÁSQUEZ Unavailable [phone] HUSSEIN GUPTA Unavailable [phone] REASON FOR VISIT Albuterol HFA Medications Medication SIG (Take, Route, Frequency, Duration) Notes Start Date End Date Status Albuterol Sulfate HFA 108 (90 Base) MCG/ACT 2 puffs Inhalation every 4 hrs for 30 days 11/02/2024 Active Encounters Encounter Location Date Provider Diagnosis [id number] [address] [place] [address] 11/02/2024 HUSSEIN GUPTA Plan Of Treatment Medication Medication Name Sig Start Date Stop Date Notes Albuterol Sulfate 108 (90 Base) MCG/ACT 1 puff as needed Inhalation every 4 hrs verbal orders per Dr. Gupta Albuterol Sulfate HFA 108 (90 Base) MCG/ACT 2 puffs Inhalation every 4 hrs for 30 days 11/02/2024 Progress Notes * AGUSTINYordan TDOB:1945 (79 yo M)Acc No.[id number]:11/02/2024 Patient: Yordan QUINTERO :1945 A ge:79 Y S ex:Male Address:[address], [place] [address] * Refills Start Albuterol Sulfate HFA Aerosol Solution, 108 (90 Base) MCG/ACT, Inhalation, 1 Each, 2 puffs, every 4 hrs, 30 days, Refills=3 Stop Albuterol Sulfate Aerosol Powder Breath Activated, 108 (90 Base) MCG/ACT, Inhalation, 1 puff as needed, every 4 hrs * true * Date: Generated for Tommy read/Wang/Bensonitting on: 1 08:47 AM EDT
--- OUTSIDE RECORDS SUMMARY | 2024-11-13 04:00 | XMS_ITS ---
Author Organization [address] [place] [address] [address] [facility] Address [address] [facility] [address] [place], [place] [id number] Care Team Providers Care Tufting Machine Fixer Name Role Phone LORI SARAVIA Primary Care Provider [phone] SASHA MARTI Unavailable [phone] Allergies Allergen (clinical drug ingredient) Drug/Non Drug Allergy documented on EMR Reaction Allergy Type Onset Date Status DUST MITES Unknown Drug Allergy Active SEASONAL ALLERGIES Unknown Drug Allergy Active Penicillin swelling.Rash Drug Allergy Ac tive REASON FOR VISIT HTN F/U Medications Medication SIG (Take, Route, Frequency, Duration) Notes Start Date End Date Status Telmisartan 80 MG 1 tablet Orally Once a day for 90 days 08/02/2024 Active Amlodipine Besylate 5 MG 1 tablet Orally Once a day for 90 days 09/04/2024 Active Albuterol Sulfate HFA 108 (90 Base) MCG/ACT 2 puffs Inhalation every 4 hrs for 30 days 11/02/2024 Active Vitamin D-3 1000 UNIT 2 capsules Orally Once a day Active Vitamin B-12 500 MCG 1 tablet Orally weekly Active Multivitamins Orally Active Simvastatin 20 MG TAKE 1 TABLET EVERY EVENING for 90 Active Rhopressa 0.02 % 1 drop into affected eye in the evening Ophthalmic Once a day Active Probiotic & Acidophilus Ex St - as directed Orally Active Magnesium Oxide 500 MG 1 capsule Orally Daily Active Fluticasone Propionate 50 MCG/ACT 1 spray in each nostril Nasally Once a day for 30 day(s) Active Fish Oil 1200 MG 1 capsule Orally Once a day Active Dorzolamide HCl 2 % 1 drop into affected eye Ophthalmic Three times a day Active Cetirizine HCl 10 MG 1 tablet Orally Once a day for 30 day(s) Active Hydrochlorothiazide 25 MG TAKE 1 TABLET ONCE DAILY INTHE MORNING for 90 Active Calcium 500 MG 1 tablet with meals Orally Twice a day Active Aspirin 81 MG 1 tablet Orally 3 times a week mon,wedn,fri Active Social History Tobacco Use: Social History Observation Description Date Details (start date - stop date) Former Smoker NA - NA Tobacco Status: Question Answer Notes Patient is a former smoker 11/13/24 Vital Signs Height 70 in 11/13/2024 Weight 204.4 lbs 11/13/2024 BMI 29.33 kg/m2 11/13/2024 Blood pressure systolic 110 mm Hg 11/14/19 25 Blood pressure diastolic 78 mm Hg 025 Temperature 97.5 degrees Fahrenheit 11/14/19 25 Heart Rate 57 /min 11/13/2024 Oximetry 97 11/13/2024 Encounters Encounter Location Date Provider Diagnosis [id number] [address] [place], [place] [id number] 11/13/2024 SASHA MARTI Essential (primary) hypertension I10 Assessments Encounter Date Diagnosis (ICD Code) Assessment Notes Treatment Notes Treatment Clinical Notes Section Notes 11/13/2024 Essential (primary) hypertension (ICD-10 - I10) Blood pressure within goal. Plan: -continue amlodipine 5 mg daily, telmisartan and hydrochlorothiaz daniella-reported no syncope, presyncope or other major side effects-follow up in 6 months 11/13/2024 Other Medical service s provided as primary care provider with longitudinal care relationship with patient involving multiple complexities Plan Of Treatment Treatment Notes Assessment Notes Essential (primary) hypertension Blood pressure within goal. Plan: -continue amlodipine 5 mg daily, telmisartan and hydrochlorothiazide-reported no syncope, presyncope or other major side effects-follow up in 6 months Other Medical services pro vided as primary care provider with longitudinal care relationship with patient involving multiple complexities Next Appt Details Follow Up: 6 Months, Reason: HTN follow up with Dr. Marti Procedure Notes * Category Sub-Category Detail Notes Supervision of Care Documentation of Supervision After the resident spent approximately 30 minutes interviewing the patient, performing physical exam and after the resident and I met to discuss the differential, the possible treatment, I agree with the resident diagnosis and agreed on the diagnostic approach. Progress Notes * Yordan VELEZ TDOB:1945 (79 yo M)Acc No.[id number]:11/13/2024 PROGRESS NOTE Patient: Yordan QUINTERO Appointment Provider: Berry MARTI MD :1945 A ge:79 Y S ex:Male Supervising Provider:MORELIA AYOUB MD Date:11/13/2024 Naman HN#:[id number] Address:[address] [place] [address], [place], [id number] Pcp:LORI SARAVIA Check In:08:00 AM COOKER SYRUP Subjective: * Chief Complaints: * H TN F/U * HPI: P atient History: Problem list: -HTN: Amlodipine 5mg, Telmisartan 80mg and HCTZ 25mg -HLD: on simvastatin 20mg daily, LDL within goal -COPD: controlled, no exacerbations, Gold Group A, follows with Dr. Gupta -Seasonal allergies -Glaucoma -recurrent diverticulitis -osteopenia 79 y old male with above mentioned past medical hx comes to the clinic for HTN follow up. He does not have any complaints this morning. He continues to stay compliant with his medications. He has been monitoring his blood pressure at home and most readings sodium 130s with couple of readings in 150s. He denies any dizziness, syncope, presyncope. He reports no constipation. He reported some ankle swelling that is intermittently present based on his physical activity. He denies any limitation in his physical activity such as chest pain or shortness a breath. * ROS: D enies any syncope, presyncope Denies any chest pain, shortness a breath Denies any limitation physical activity Denies any constipation Reports some ankle swelling. * Medical History: * Surgical History: C holecystectomy Appendectomy Pneumothorax Squamous Cell Carcinoma 11/03/2010Endoscopy 09/22/2015melanoma removal-L arm 08/2017cataract surgery both eyes 05/2019 * Hospitalization/Major Diagno stic Procedure: D enies Past Hospitalization * Family History: M other: 70 yrs. F ather: 77 yrs, CVA, diagnosed with Heart Attack. 1 brother(s) - healthy. 1 son(s) , 1 daughter(s) - healthy. . son juvenile diabetes M - PARKINSON'S F- SUICIDE. * Social History: A lcohol Use Patient u ses alcohol Drinks per occasion: 1 Drinks per week: 0 T obacco Status Patient is a former smoker 11/13/24 number of years 1 0 packs per day 1 E xercise: regular exercise, cardio, strength training. M arital Status: . I llicit Drug Use Patient/Family reports: N o illicit drug use C affeine: 2 cups coffee daily. D rugs: none. O ccupation/Work: retired. * Medications: T akingAlbuterol Sulfate HFA 108 (90 Base) MCG/ACT Aerosol Solution 2 puffs Inhalation every 4 hrs Amlodipine Besylate 5 MG Tablet 1 tablet Orally Once a day Aspirin 81 MG Tablet 1 tablet Orally 3 times a week , Notes to Pharmacist: tue,,tueCalcium 500 MG Tablet 1 tablet with meals Orally Twice a day Cetirizine HCl 10 MG Tablet 1 tablet Orally Once a day Dorzolamide HCl 2 % Solution 1 drop into affected eye Ophthalmic Three times a day Fish Oil 1200 MG Capsule Delayed Release 1 capsule Orally Once a day Fluticasone Propionate 50 MCG/ACT Suspension 1 spray in each nostril Nasally Once a day Hydrochlorothiazide 25 MG Tablet TAKE 1 TABLET ONCE DAILY INTHE MORNING Magnesium Oxide 500 MG Capsule 1 capsule Orally Daily Multivitamins Capsule Orally Probiotic & Acidophilus Ex St - Capsule as directed Orally Rhopressa 0.02 % Solution 1 drop into affected eye in the evening Ophthalmic Once a day Simvastatin 20 MG Tablet TAKE 1 TABLET EVERY EVENING Telmisartan 80 MG Tablet 1 tablet Orally Once a day Vitamin B-12 500 MCG Tablet 1 tablet Orally weekly Vitamin D-3 1000 UNIT Capsule 2 capsules Orally Once a day Medication List reviewed and reconciled with the patientTaking Albuterol Sulfate HFA 108 (90 Base) MCG/ACT Aerosol Solution 2 puffs Inhalation every 4 hrs Taking Amlodipine Besylate 5 MG Tablet 1 tablet Orally Once a day Taking Aspirin 81 MG Tablet 1 tablet Orally 3 times a week , Notes to Pharmacist: tue,,tueTaking Calcium 500 MG Tablet 1 tablet with meals Orally Twice a day Taking Cetirizine HCl 10 MG Tablet 1 tablet Orally Once a day Taking Dorzolamide HCl 2 % Solution 1 drop into affected eye Ophthalmic Three times a day Taking Fish Oil 1200 MG Capsule Delayed Release 1 capsule Orally Once a day Taking Fluticasone Propionate 50 MCG/ACT Suspension 1 spray in each nostril Nasally Once a day Taking Hydrochlorothiazide 25 MG Tablet TAKE 1 TABLET ONCE DAILY INTHE MORNING Taking Magnesium Oxide 500 MG Capsule 1 capsule Orally Daily Taking Multivitamins Capsule Orally Taking Probiotic & Acidophilus Ex St - Capsule as directed Orally Taking Rhopressa 0.02 % Solution 1 drop into affected eye in the evening Ophthalmic Once a day Taking Simvastatin 20 MG Tablet TAKE 1 TABLET EVERY EVENING Taking Telmisartan 80 MG Tablet 1 tablet Orally Once a day Taking Vitamin B-12 500 MCG Tablet 1 tablet Orally weekly Taking Vitamin D-3 1000 UNIT Capsule 2 capsules Orally Once a day Medication List reviewed and reconciled with the patient * Allergies: P enicillin: swelling.RashSEASONAL ALLERGIESDUST MITESno[Allergies Verified] Objective: * Vitals: H t: 70 in, Ht-cm: 177.8 cm, Wt: 204.4 lbs, Wt-k.71 kg, BMI:29.33, Weight Change: 2.6 lbs, Body Surface Area: 2.14, BP:110/78, Temp:97.5F, HR:57, Oxygen sat %:97. * Examination: G eneral Examination: C hest and lungs: Clear to auscultation bilaterally, no crackles, no wheezing Cardiac: S1-S2, regular rate and rhythm, no murmurs Abdomen: Soft, nontender bowel sounds present Extremities: Minimal nonpitting edema present on bilateral ankles. Assessment: * Assessment: 1. E ssential (primary) hypertension - I10 (Primary) Plan: * Treatment: 2. O thers Notes: Medical services provided as primary care provider with longitudinal care relationship with patient involving multiple complexities * Procedures: S upervision of Care: Documentation of Supervision A fter the resident spent approximately 30 minutes interviewing the patient, performing physical exam and after the resident and I met to discuss the differential, the possible treatment, I agree with the resident diagnosis and agreed on the diagnostic approach.. * Procedure Codes: G 2211 COMPLEX E/M VISIT ADD ON * Preventive Medicine: [place] [facility] (Patient Assessment Form): F all Risk Assessment Date Screening Completed: 0 07/31/2024 Increased Fall Risk factors: N o fall risk factors History Falls in Past Year: N o falls in the past year * Follow Up: 6 Months (Reason: HTN follow up with Dr. Marti) * Care Plan Details* Review Notes: MORELIA AYOUB 2024-11-15 13:13:01* Sign off status: Completed true * Appointment Provider: Berry MARTI MD Date: 0 11/13/2024 Generated for Jigneshi jacek/Wang/eTransmitting on: 1 08:47 AM EDT History and Physical Notes * HPI (History of Present Illness) Category Sub-Category Detail Notes Category Not es Patient History Problem list: -HTN: Amlodipine 5mg, Telmisartan 80mg and HCTZ 25mg -HLD: on simvastatin 20mg daily, LDL within goal -COPD: controlled, no exacerbations, Gold Group A, follows with Dr. Gupta -Seasonal allergies -Glaucoma -recurrent diverticulitis -osteopenia 79 y old male with above mentioned past medical hx comes to the clinic for HTN follow up. He does not have any complaints this morning. He continues to stay compliant with his medications. He has been monitoring his blood pressure at home and most readings sodium 130s with couple of readings in 150s. He denies any dizziness, syncope, presyncope. He reports no constipation. He reported some ankle swelling that is intermittently present based on his physical activity. He denies any limitation in his physical activity such as chest pain or shortness a breath. Examination Category Sub-Category Detail Notes Category Not es General Examination Chest and lungs: Clear to auscultation bilaterally, no crackles, no wheezing Cardiac: S1-S2, regular rate and rhythm, no murmurs Abdomen: Soft, nontender bowel sounds present Extremities: Minimal nonpitting edema present on bilateral ankles
--- OUTSIDE RECORDS SUMMARY | 2025-01-01 09:21 | XMS_ITS ---
Author Organization [address] [place] [address] 89[address] [facility] Address [address] [place], [place] [phone] Care Team Providers Care Therapeutic Support Staff Name Role Phone LORI SARAVIA Primary Care Provider SASHA VELÁSQUEZ [phone] REASON FOR VISIT refill Medications Medication SIG (Take, Route, Frequency, Duration) Notes Start Date End Date Status Telmisartan 80 MG 1 tablet Orally Once a day for 90 days 08/02/2024 Active Cetirizine HCl 10 MG 1 tablet Orally Onc e a day for 30 day(s) Active Simvastatin 20 MG TAKE 1 TABLET EVERY EVENING for 90 Active Hydrochlorothiazide 25 MG TAKE 1 TABLET ONCE DAILY INTHE MORNING for 90 Active Amlodipine Besylate 5 MG 1 tablet Orally Once a day for 90 days 09/04/2024 Active Encounters Encounter Location Date Provider Diagnosis [id number] [address] [place], [place] [id number] 01/01/2025 SASHA VELÁSQUEZ Essential (primary) hypertension I10 Assessments Encounter Date Diagnosis (ICD Code) Assessment Notes Treatment Notes Treatment Clinical Notes Section Notes 01/01/2025 Essential (primary) hypertension (ICD-10 - I10) Plan Of Treatment Medication Medication Name Sig Start Date Stop Date Notes Telmisartan 80 MG 1 tablet Orally Once a day for 90 days 08/02/2024 Cetirizine HCl 10 MG 1 tablet Orally Onc e a day for 30 day(s) Simvastatin 20 MG TAKE 1 TABLET EVERY EVENING for 90 Hydrochlorothiazide 25 MG TAKE 1 TABLET ONCE DAILY INTHE MORNING for 90 Amlodipine Besylate 5 MG 1 tablet Orally Once a day for 90 days 09/04/2024 Progress Notes * Yordan VELEZ TDOB:1945 (79 yo M)Acc No.[id number]:01/01/2025 Patient: Yordan QUINTERO :1945 A ge:79 Y S ex:Male Address:[facility] [address] [place] [address] * Refills Refill Telmisartan Tablet, 80 MG, Orally, 90 Tablet, 1 tablet, Once a day, 90 days, Refills=3 Refill Simvastatin Tablet, 20 MG, 90 Tablet, TAKE 1 TABLET EVERY EVENING, 90, Refills=3 Refill Hydrochlorothiazide Tablet, 25 MG, 90 Tablet, TAKE 1 TABLET ONCE DAILY INTHE MORNING, 90, Refills=3 Refill Cetirizine HCl Tablet, 10 MG, Orally, 30, 1 tablet, Once a day, 30 day(s) Refill Amlodipine Besylate Tablet, 5 MG, Orally, 90 Tablet, 1 tablet, Once a day, 90 days, Refills=3 * true * Date: Generated for Tommy read/Wang/Idania on: 08:47 AM EDT
--- NOTE | 2025-04-23 08:29 | A.OFFPC_ITS ---
Vital Signs 04/23/25 08:34 Height 5 ft 10 in Weight 209 lb 6 oz BMI 30.0 BP 119/58 L Blood Pressure Location Rt brachial Position Sitting Respiration 16 Pulse 49 L Pulse Source Palpation Temp 97.5 F Temp Source Oral Pulse Oximetry (%) 96 Oxygen Delivery Method Room Air Intake Visit Reasons: 1 mos HTN, A1c check Intake Note: patient here for 1 month follow up on HTN and AIC check Household Worker Required: No Allergies bimatoprost (From [place]) Allergy (Intermediate, Verified 04/23/25 08:33) burning Penicillins Allergy (Intermediate, Verified 04/23/25 08:33) Rash Tobacco use date assessed: 04/23/25 Fall risk assessment: No Falls in past year Last assessed Fall Risk: 04/23/25 Dental Screening Dental Screen Date: 04/23/25 Did you have a dental visit in the last 12 months?: Yes Did you have a dental problem in the last 6 months where you did not have access to dental care?: No Was dental information given to patient?: Patient has dentist HPI HPI Comments History of Present Illness Details 80-year-old male presents for hypertensi on and A1c check. He admits to taking his medications as prescribed without adverse reactions. His recent consecutive fasting glucose were 117 and 103. He notes that he has been making healthy lifestyle changes. Reports intermittent dry cough for the past 6 weeks. He had runny nose which completely resolved within 1-2 weeks of taking Robitussin. No current associated symptoms. He takes Zyrtec daily. He was not able to follow-up in schedule an established visit with pulmonology for history of COPD; he requests a new referral. [facility] Medical History (Updated 04/23/25 @ 09:01 by Kieran Lynne CNP) Ruptured appendix Pneumothorax Surgical History (Updated 01/29/25 @ 13:42 by Patricia Craig MA) Cholecystotomy with removal of foreign body from gallbladder performed Family History Maternal Grandmother Diabetes Father Stroke (cerebrum) Maternal Grandfather Cardiovascular disease Paternal Grandfather Leukemia Social History (Updated 02/15/25 @ 12:51 by Stefani Martinez MA) Housing: Apartment Alcohol intake: current Patient Tobacco Use Status: Never used Tobacco e-Cigarette/Vaping Use: Never Used Second Hand Smoke Exposure: No service: No Current occupational status: retired Current occupational exposures/hazards: No Cognitive needs: No Hearing needs: Yes Vision needs: Yes Questionnaire Thrive Questionnaire Date Thrive assessed: 01/22/25 I am a: Patient What is your living situation today?: I have a steady place to live Within the past 12 months, did the food you bought not last and you didn't have the money to get more?: Never true Within the past 12 months, did you worry whether your food would run out before you got money to buy more?: Never true Do you have trouble paying for medicines?: No Do you have trouble getting transportation to medical appointments?: No Do you have trouble paying your heating and electricity bill?: No Do you have trouble taking care of your child, family member or friend?: No Do you have trouble with day-to-day activities such as bathing, preparing meals, shopping, managing finances, etc.?: No Are you currently unemployed and looking for a job?: No Are you interested in more education?: No Please select the resources that you would like help with: None Currently or been in a relationship where the following occur: No concerns reported THRIVE Score: 0 MEGHAN-7 AMB Questionnaire MEGHAN-7 Date MEGHAN - 7 assessed: 01/29/25 Source: Developed by Drs. Cristian Aguayo, Amberly Gallegos, Nura Trimble and colleagues, with an educational adeola from [employer]. Review of Systems Const Details: Const Denies chills, Denies fatigue, Denies fever(s), Denies headache(s) and Denies weakness ENT Denies dizziness and Denies headache(s) Card Denies chest pain, Denies lightheadedness, Denies dyspnea and Denies other (Palpitations) Resp Reports cough, Denies dyspnea, Denies wheezing and Denies other ( shortness of breath) GI Denies abdominal pain, Denies melena, Denies hematochezia, Denies change in bowel habits, Denies dyspepsia and Denies nausea Denies hematuria and Denies dysuria Musc Denies abnormal gait, Denies myalgias, Denies arthralgias, Denies numbness and Denies tingling Skin/Breast Denies rash, Denies unusual bruising and Denies wounds Neuro Denies abnormal gait, Denies dizziness, Denies headache(s), Denies memory loss, Denies numbness, Denies Sensory deficit (Neuro), Denies tingling and Denies weakness Psych Denies anxiety, Denies depression, Denies memory loss Endo Denies cold intolerance, Denies fatigue, Denies heat intolerance, Denies polydipsia and Denies polyuria Aller/Immun Denies wheezing Physical exam (Primary Care) Vital Signs: Last Vital Signs Temp 97.5 F 04/23/25 08:34 Pulse 49 L 04/23/25 08:34 Resp 16 04/23/25 08:34 BP 119/58 L 04/23/25 08:34 Pulse Ox 96 04/23/25 08:34 Oxygen Delivery Method Room Air 04/23/25 08:34 BMI result Body Mass Index 30.0 Tobacco/Smoking Status: Tobacco use Status Tobacco use date assessed 04/23/25 04/23/25 08:40 Patient Tobacco Use Status Never used Tobacco 04/23/25 08:32 e-Cigarette/Vaping Use Never Used 04/23/25 08:32 Thrive Assessment: Date of Thrive Assessment Date Thrive assessed 01/22/25 04/23/25 08:32 Currently or been in a relationship where the following occur: No concerns reported Const Other: General: no acute distress and well developed Nutritional Appearance: well nourished Orientation/consciousness: patient oriented x3 HENMT Head: Yes normocephalic and Yes atraumatic Eyes General: appearance normal, both eyes and all related structures Pupils: Equal, round and reactive pupils present EOM: EOMs intact bilaterally Resp Effort & Inspection: normal respiratory effort Auscultation: clear to auscultation bilaterally Cardio Rate: regular rate Rhythm: regular rhythm Heart sounds: S1 normal heart sound present, S2 normal heart sound present, no gallops, no murmurs and no rubs GI Palpation (GI): No Abdominal aortic bruit present, Soft to palpation, nontender, No hepatosplenomegaly present and No Rebound tenderness present Auscultation: normal bowel sounds General: Yes no CVA tenderness Back/Spine/Pelvis Back: no CVA tenderness Cervical Spine: cervical ROM normal and No Cervical spine tenderness Thoracic/Lumbar Spine: thoraco-lumbar ROM normal, No pain with thoraco-lumbar ROM, No thoracic spinal tenderness and No lumbar spinal tenderness Extrem General: Yes normal to inspection, No edema and No calf tenderness Skin General: warm and dry. Normal skin color. Normal skin turgor Neuro General: patient oriented x3, gait normal and no focal neuro deficit Cranial nerves: Yes Equal, round and reactive pupils present Cognition (Neuro): normal cognition Gait exam (Neuro): Normal gait present Sensory Exam: No Sensory deficit (Neuro) Psych Appearance: grossly normal Affect: normal affect Attitude: cooperative Thought process: Normal thought process present Results AMB Hemoglobin A1c AMB Hemoglobin A1c 5.7 % Last Edit by Patricia Craig MA on 04/23/25 08:56 Coding Level of Care Code Est Pt Level 4 (37395) Diagnoses Hypertension I10 Prediabetes R73.03 Nonproductive cough R05.8 Assessment & Plan Assessment & Plan (1) Hypertension: Code(s): I10 - Essential (primary) hypertension Category: Medical Plan: Resting blood pressure is 115/58, within goal of less than 140/90. Continue current treatment regimen. Low-sodium diet encouraged. Follow-up in 3 months or sooner with symptoms or concerns. Verbalized understanding and agreed with the plan. (2) Prediabetes: Code(s): R73.03 - Prediabetes Category: Medical Plan: His recent fasting glucose were 117 and 103. A1c today is 5.7%. Healthy diet, including low carbs encouraged. Will monitor A1c every 6-12 months. Verbalized understanding and agreed with the plan. (3) Nonproductive cough: Code(s): R05.8 - Other specified cough Category: Medical Plan: Normal respiratory exam. No cough noted during this encounter. Continue to take Zyrtec daily. Adequate hydration encouraged. Follow-up with worsening or new symptoms. Verbalized understanding and agreed with the plan. Orders: Orders AMB Hemoglobin A1c Today Z13.9 - Encounter for screening, unspecified Referrals Pulmonology Referral J44.9 - Chronic obstructive pulmonary disease, unspecified
[2025-04-23 08:34] VITALS: BP 119/58; PULSE 49; RESP 16; TEMP 36.4; O2SAT 96
--- OUTSIDE RECORDS SUMMARY | 2025-04-23 08:47 | XMS_ITS | Clinical Summary ---
Author Organization [facility] Address [address] [employer] [facility] [address] [place] [phone] Phone Care Team Providers Care Test Operator Name Role Phone Anand Sarmiento MD Primary [...] file Insurance MEDICARE PART A & B [id number] [place] [address] MEDICARE SUPPLEMENT MEDICARE PART A & B [facility] MEDICARE SUPPLEMENT MEDICARE PART A & B MEDICARE SUPPLEMENT MEDICARE PART A & B MEDICARE SUPPLEMENT MEDICARE PART A & B [facility] MEDICARE SUPPLEMENT MEDICARE PART A & B Member Subscriber Plan / Payer (Ef fective 2009-Present) Name:Yordan Velez Member ID:[id number] Relation to Subscriber:Self Name:Yordan Velez Subscriber ID:[id number] Payer ID:[id number] Group ID:Not on file Type:Medicare Address: [employer] [address] MEDICARE SUPPLEMENT MEDICARE PART A & B [facility] MEDICARE SUPPLEMENT MEDICARE PART A & B Member Subscriber Plan / Payer (Ef fective 2009-Present) Name:Yordan Velez Member ID:[id number] Relation to Subscriber:Self Name:Yordan Velez Subscriber ID:[id number] Payer ID:[id number] Group ID:Not on file Type:Medicare Address: [employer] [address] MEDICARE SUPPLEMENT MEDICARE PART A & B Member Subscriber Plan / Payer (Ef fective 2009-Present) Name:Yordan Velez Member ID:[id number] Relation to Subscriber:Self Name:Yordan Velez Subscriber ID:[id number] Payer ID:[id number] Group ID:Not on file Type:Medicare Address: [employer] [address] [place] [id number] [facility] MEDICARE SUPPLEMENT Care Teams Test Operator Relationship Specialty Start Date End Date Anand Sarmiento MD [address] [facility] [address] [place] [address] PCP - General 04/20/19 Additional Source Comments The information contained in this document represents components of the legal health record. It is not the complete legal health record.[facility]
--- OUTSIDE RECORDS SUMMARY | 2025-04-23 08:47 | XMS_ITS | Clinical Summary ---
Author Organization [facility] Address [address] [place] [address] Care Team Providers Care Salvage Supervisor Name Role Phone Pcp, No Primary Care Provider Unavailabl e Encounters Date Type Department Care Team Description 03/12/2025 Telephone [facility] [address] [place] [address] Pcp, No 03/07/2025 Telephone [facility] [address] [place] [address] Pcp, No from Last 3 [...] topic Insurance MEDICARE PART A & B [facility] Care Teams Salvage Supervisor Relationship Specialty Start Date End Date Pcp, No PCP - General General Medicine 12/21/24
--- OUTSIDE RECORDS SUMMARY | 2025-04-23 08:48 | XMS_ITS | Patient Health Record ---
Author Organization [address] [place] [address] 8921 [facility] Address [address] [facility] [address] [place], [place] [id number] Care Team Providers Care Heating And Cooling Systems Engineer Name Role Phone LORI SARAVIA Primary Care Provider SASHA VELÁSQUEZ Unavailable [phone] DHARA MARK Unavailable [phone] HUSSEIN NARAYAN Unavailable [phone] Allergies Allergen (clinical drug ingredient) Drug/Non Drug Allergy documented on EMR Reaction Allergy Type Onset Date Status DUST MITES Unknown Drug Allergy Active SEASONAL ALLERGIES Unknown Drug Allergy Active Penicillin swelling.Rash Drug Allergy Ac tive Results Component Value Reference Range Notes COMPLETE BLOOD COUNT WO DIFF ([facility]-CBC) Reviewed date:07/31/2024 09:38:10 AM Interpretation: Performing Lab:[facility], [address] [address] Notes/Report: White Blood Count 9.67 3.90-11.00 10*3/uL Red Blood Count 5.18 4.30-5.80 10*6/uL Hemoglobin result 15.4 13.0-17.0 g/dL Hematocrit Result 45.4 34.0-51.0 % Mean Corpuscular Volume 87.6 80.0-100.0 fL Mean Corpuscular Hemoglobin 29.7 27.0-33.0 pg Mean Corpuscular HGB Conc 33.9 31.0-36.0 g/dL RDW Standard Deviation 40.9 35.1-43.9 fL Platelet Count 299 130-400 10*3/uL Mean Platelet Volume 10.4 7.0-11.0 fL NRBC Percent Auto 0.0 NRBC Absolute Auto 0.00 0.00-0.01 10*3/uL COMPREHENSIVE METABOLIC PANE L ([facility]) Reviewed date:07/31/2024 09:38:10 AM Interpretation: Performing Lab:[address] [address] Notes/Report: Sodium 139 135-145 mmol/L Potassium 3.9 3.5-5.1 mmol/L Chloride 104 98-108 mmol/L Carbon Dioxide 28 21-32 mmol/L Glucose 103 74-106 mg/dL Blood Urea Nitrogen 17 10-24 mg/dL Anion Gap 7 5-15 Creatinine 0.90 0.70-1.30 mg/dL BUN Creatinine Ratio 18.9 8.0-27.0 Estimated Glomerular Filt Rate 86.3 >=60 mL/mi n/1.73m2 Calcium 10.2 8.5-10.1 mg/dL Total Protein 6.8 6.4-8.2 g/dL Albumin Level 4.0 3.4-5.0 g/dL Globulin 2.8 1.9-4.5 gm/dL Albumin Globulin Ratio 1.43 Calcium Corrected 10.2 8.5-10.1 mg/dL Bilirubin Total 2.0 0.2-1.0 mg/dL Aspartate Aminotransferase AST 28 15-37 U/L Alanine Aminotransferase ALT 31 13-61 U/L Alkaline Phosphatase ALP 75 45-117 U/L LIPID PANEL ([facility]) Reviewed date:07/31/2024 09:38:10 AM Interpretation: Performing Lab:[address] [address] Notes/Report: Cholesterol 163 0-199 mg/dL Triglycerides 92 0-149 mg/dL HDL Cholesterol 49 >40 mg/dL LDL Cholesterol Calculated 96 0-99 mg/dL VLDL Cholesterol 18.4 PROSTATE SPECIFIC ANTIGEN (P [facility]-PSA) Reviewed date:07/31/2024 09:38:10 AM Interpretation: Performing Lab:[address] [address] Notes/Report: Prostate Specific Antigen Scr 2.20 0.00-4.00 n g/mL Siemens LOCI Methodology Values obtained with different assay methods cannot be used interchangeably. Results cannot be interpreted as absolute evidence of the presence or absence of disease Reason For Referral No Information Medications Medication SIG (Take, Route, Frequency, Duration) Notes Start Date End Date Status Multivitamins Orally Active Calcium 500 MG 1 tablet with meals Orally Twice a day Active Aspirin 81 MG 1 tablet Orally 3 times a week mon,wedn,fri Active Rhopressa 0.02 % 1 drop into affected eye in the evening Ophthalmic Once a day Active Albuterol Sulfate HFA 108 (90 Base) MCG/ACT 2 puffs Inhalation every 4 hrs for 30 days 11/02/2024 Active Probiotic & Acidophilus Ex St - as directed Orally Active Telmisartan 80 MG 1 tablet Orally Once a day for 90 days 08/02/2024 Active Cetirizine HCl 10 MG 1 tablet Orally Once a day for 30 day(s) Active Simvastatin 20 MG TAKE 1 TABLET EVERY EVENING for 90 Active Hydrochlorothiazide 25 MG TAKE 1 TABLET ONCE DAILY INTHE MORNING for Active Amlodipine Besylate 5 MG 1 tablet Orally Once a day for 90 days 09/04/2024 Active Fluticasone Propionate 50 MCG/ACT 1 spray in each nostril Nasally Once a day for 30 day(s) Active Fish Oil 1200 MG 1 capsule Orally Once a day Active Dorzolamide HCl 2 % 1 drop into affected eye Ophthalmic Three times a day Active Vitamin D-3 1000 UNIT 2 capsules Orally Once a day Active Vitamin B-12 500 MCG 1 tablet Orally weekly Active Magnesium Oxide 500 MG 1 capsule Orally Daily Active Immunizations Vaccine Route Administration Date Status Comme nts COVID-19 Non-US (Past vaccine of unknown type) IM Intramuscular 04/09/2024 Administered FLU (Past vaccine of unknown type) IM Intramuscular 04/09/2024 Administered PNEUMOCOCCAL (Past vaccine of unknown type) Unknown 07/11/2011 Administered PNEUMOCOCCAL 13 CONJ ([id number]) IM Intramuscular 05/13/2015 Administered RSV recombinant (Arexvy) 60+ yrs IM Intramuscular 06/16/2023 Administered zFLU 3V (FLUZONE HIGH DOSE), 65 YRS+, NO PRES - ALL PAYORS IM Intramuscular 04/21/2017 Administered zFLU 3V (FLUZONE HIGH DOSE), 65 YRS+, NO PRES - ALL PAYORS IM Intramuscular 04/25/2018 Administered zFLU 4V (FLUAD QUAD), 65yrs+, NO PRES - ALL PAYORS IM Intramuscular 04/23/2021 Administered zFLU 4V (FLUZONE HIGH DOSE QUAD), 65yrs+, NO PRES - ALL PAYORS IM Intramuscular 05/08/2020 Administered zFLU 4V (FLUZONE QUAD), 3 YRS+, WITH PRES - ALL PAYORS IM Intramuscular 05/13/2015 Administered zFLU 4V (FLUZONE QUAD), 3 YRS+, WITH PRES - ALL PAYORS IM Intramuscular 04/20/2016 Administered ZOSTER (SHINGRIX) IM Intramuscular 11/16/2018 Administered zZOSTER (Past vaccine of unknown type)121 Unknown 07/11/2011 Administered Social History Tobacco Use: Social History Observation Description Date Details (start date - stop date) Former Smoker NA - NA Tobacco Status: Question Answer Notes Patient is a former smoker 11/13/24 Problems Problem Type SNOMED Code ICD Code Onset Dates Problem Status W/U Status Risk Notes Problem 98979509 Essential (prima ry) hypertension (I10) Active confirmed Problem 69087843 Mucopurulent chr onic bronchitis (J41.1) Active confirmed No episod es in last 12 months. No symptoms of daily cough or sputum production. His last PFT did not show any fixed obstructive airway disease. He can continue to use albuterol on a p.r.n. basis though he has not required it at all in last 1 year. He will contact us if he notices any new onset symptoms. Problem 82823822 Cough (R05) Active confirmed Problem 14140843 Osteoporosis (M81.0) Active confirmed Problem 322865904 Medicare annual wellness visit, subsequent (Z00.00) Active confirmed Problem 29961768 Hematuria (R31.9) Active confirmed Consultation Dr Mcclure - cystoscopy not done Problem 41751900 GUTIERREZ (obstructive sleep apnea) (G47.33) Active confirmed Mild obstructive sleep apnea with AHI of 9.0 for which she has chosen weight loss and would not prefer any definitive therapy such as CPAP. Problem 09314744 Bronchitis (J40) Active confirmed Problem 54318950 Essential hypert ension (I10) Active confirmed Problem 53797079 Rhinorrhea (J34.89) Active confirmed Problem 148177623 History of melan raissa (Z85.820) Active confirmed Problem 257453528 Pulmonary nodule (R91.1) Active confirmed The CT scan followed small pulmonary nodules and minimal interstitial changes serially. Clinically no new symptoms. He would prefer not to do any more imaging studies. Problem 554071383 ILD (interstitia l lung disease) (J84.9) Active confirmed Minimal changes on the last CT scan of chest in 2019 which appears more of scarring. He declined any further evaluation as long as he is asymptomatic. Currently no new symptoms. Discussed again in detail. He would prefer to be monitored clinically without any imaging studies at this time. Problem 047392944 Benign non-nodul ar prostatic hyperplasia with lower urinary tract symptoms (N40.1) Active confirmed Problem 38864993 Diffusion capaci ty of lung (dl), decreased (R94.2) Active confirmed Clinically a very stable course. Will continue to monitor without any PFT at this time. Problem 79959378 Seasonal allergi c rhinitis due to pollen (J30.1) Active confirmed Problem 096084438 Pure hypercholesterolemia (E78.00) Active confirmed Problem 28773780 Abnormal liver function (R94.5) Active confirmed Vital Signs Heart Rate 57 /min 11/13/2024 Temperature 97.5 degrees Fahrenheit 11/13/2024 Oximetry 97 11/13/2024 Blood pressure diastolic 78 mm Hg 11/13/2024 Height 70 in 11/13/2024 Blood pressure systolic 110 mm Hg 11/13/2024 Weight 204.4 lbs 11/13/2024 BMI 29.33 kg/m2 11/13/2024 Encounters Encounter Location Date Provider Diagnosis [address] [place] [address] [facility] [address] [place], [place] [id number] 07/02/2024 SASHA VELÁSQUEZ [address] [place] [address] [facility] [address] [place], [place] [id number] 07/02/2024 DHARA MARK [address] [place] [address] [facility] [address] [place], [place] [id number] 09/07/2024 SASHA VELÁSQUEZ Essential (primary) hypertension I10 [id number] [facility] [address] [place] [address] 10/29/2024 HUSSEINERVIN WASHINGTONARA [id number] [facility] [address] [place] [address] 11/02/2024 HUSSEIN GODARA [id number] [place] [address] [facility] [address] [place], [place] [id number] 01/01/2025 SASHA CHHOKER Essential (primary) hypertension I10 [id number] [place] [address] [facility] [address] [place], [place] [id number] 09/04/2024 SASHA CHHOKER Annual wellness visi t Z00.00 and Essential (primary) hypertension I10 [id number] [place] [address] [facility] [address] [place], [place] [id number] 11/13/2024 SASHA CHHOKER Essential (primary) hypertension I10 [id number] [facility] [address] [place] [address] 06/11/2024 HUSSEINMarkus NARAYAN Mucopurulent chronic bronchitis J41.1 ; ILD (interstitial lung disease) J84.9 ; Pulmonary nodule R91.1 ; GUTIERREZ (obstructive sleep apnea) G47.33 and Diffusion capacity of lung (dl), decreased R94.[address] [place] [address] [facility] [address] [place], [place] [id number] 06/27/2024 SASHA CHHOKER Essential (primary) hypertension I10 ; Annual wellness visit Z00.00 ; Pure hypercholesterolemia E78.00 and Encounter for prostate cancer screening Z12.[id number] [place] [place] [address] [facility] [address] [place], [place] [id number] 07/31/2024 SASHA CHHOKER Essential (primary) hypertension I10 Assessments Encounter Date Diagnosis (ICD Code) Assessment Notes Treatment Notes Treatment Clinical Notes Section Notes 06/11/2024 Mucopurulent chronic bronchitis (ICD-10 - J41.1) No episodes in last 12 months. No symptoms of daily cough or sputum production. His last PFT did not show any fixed obstructive airway disease. He can continue to use albuterol on a p.r.n. basis though he has not required it at all in last 1 year. He will contact us if he notices any new onset symptoms. 06/27/2024 Essential (primary) hypertension (ICD-10 - I10) HTN is stable, blood pressure elevated in the clinic. Plan: -advised on dash diet -monitoring blood pressure at home -continue telmisartan and hydrochlorothiazide- follow-up in 5 weeks 06/27/2024 Annual wellness visi t (ICD-10 - Z00.00) Up-to-date on cancer screening, colon cancer and prostate cancerRepeat PSA 07/31/2024 Essential (primary) hypertension (ICD-10 - I10) Elevated blood pressure at home consistently. Plan: -continue telmisartan and hydrochlorothiazide -started amlodipine 2.5 mg daily -follow up in 5 weeks -advised the patient to keep blood pressure log at home, bring blood pressure machine and cuff during the next visit 09/04/2024 Annual wellness visi t (ICD-10 - Z00.00) -patient is up-to-date on vaccines -patient is up-to-date on cancer screening and is no longer on colonoscopy-PSA was normal 06/11/2024 ILD (interstitial ciara ng disease) (ICD-10 - J84.9) Minimal changes on the last CT scan of chest in 2019 which appears more of scarring. He declined any further evaluation as long as he is asymptomatic. Currently no new symptoms. Discussed again in detail. He would prefer to be monitored clinically without any imaging studies at this time. 11/13/2024 Essential (primary) hypertension (ICD-10 - I10) Blood pressure within goal. Plan: -continue amlodipine 5 mg daily, telmisartan and hydrochlorothiazide- reported no syncope, presyncope or other major side effects-follow up in 6 months 09/07/2024 Essential (primary) hypertension (ICD-10 - I10) 01/01/2025 Essential (primary) hypertension (ICD-10 - I10) 09/04/2024 Essential (primary) hypertension (ICD-10 - I10) Plan: -continue telmisartan, and hydrochlorothiazide -increase amlodipine to 5 mg daily-continue monitoring home blood pressure-follow up in 10 weeks 06/27/2024 Pure hypercholesterolemia (ICD-10 - E78.00) Continue simvastatinRepeat lipid panel 06/11/2024 Pulmonary nodule (ICD-10 - R91.1) The CT scan followed small pulmonary nodules and minimal interstitial changes serially. Clinically no new symptoms. He would prefer not to do any more imaging studies. 06/11/2024 GUTIERREZ (obstructive sle ep apnea) (ICD-10 - G47.33) Mild obstructive sleep apnea with AHI of 9.0 for which she has chosen weight loss and would not prefer any definitive therapy such as CPAP. 06/27/2024 Encounter for prosta te cancer screening (ICD-10 - Z12.5) PSA screening ordered 06/11/2024 Diffusion capacity o f lung (dl), decreased (ICD-10 - R94.2) Clinically a very stable course. Will continue to monitor without any PFT at this time. 06/27/2024 Other Medical service s provided as primary care provider with longitudinal care relationship with patient involving multiple complexities 07/31/2024 Other Medical service s provided as primary care provider with longitudinal care relationship with patient involving multiple complexities 11/13/2024 Other Medical service s provided as primary care provider with longitudinal care relationship with patient involving multiple complexities Plan Of Treatment Pending Test Test Name Order Date CBC W/AUTO DIFFERENTIAL([facility]-CBC) 2015 CBC W/AUTO DIFFERENTIAL([facility]-CBC) 2019 IRON W/TIBC AND %SAT([facility]-FETIBC) 2019 AB HEPATITIS C([facility]-HCVAB) 11/23/2019 HEPATIC FUNCTION PANEL([facility]-HEPATIC) ANTINUCLEAR ANTIBODIES TITER(PRHP-IFAANA ) 11/23/2019 LACTOFERRIN STOOL(PR[facility]-LACTOFER) 019 LIPID PROFILE([facility]-LIPID) 07/24/2019 LIPID PROFILE([facility]-LIPID) 05/21/2016 PROSTATE SPECIFIC AG([facility]-PSA) 6 PROSTATE SPECIFIC AG([facility]-PSA) 9 PROSTATE SPECIFIC AG([facility]-PSA) 0 UA URINALYSIS WITHOUT REFLEX TO CX(PR[facility]- UA) 07/24/2019 UA URINALYSIS WITHOUT REFLEX TO CX(PR[facility]- UA) 09/06/2016 MAMMO- MA DEXA BONE DENS AXIAL (01995)(P RHP-DEXDUAL) 09/12/2017 MAMMO- MA DEXA BONE DENS AXIAL (85038)(P RHP-DEXDUAL) 11/09/2018 MAMMO- MA DEXA BONE DENS AXIAL (04540)(P RHP-DEXDUAL) 11/25/2020 STOOL CULTURE(PR[facility]-STOOLC) 01/01/2019 COMPREHENSIVE METABOLIC PANEL(PR[facility]-COMPP NL) 07/24/2019 BASIC METABOLIC PANEL(PR[facility]-BASIC) 2015 SHIGA TOXIN PRODUCING ECOLI(PRHP-SHIGATO THUY) 01/01/2019 C DIFFICILE SCREEN(PR[facility]-CDSCRT) 01/02/20 19 GIARDIA AND CRYPTOSPORIDIUM ANTIGEN PANE L(Q-82264) 01/01/2019 SL- HOME SLEEP TEST (MTOE) (27693) ([facility] -HSTUNATT) 12/21/2022 TSH REFLEX TO FT4 (PRHP-TSHRFX4) 023 Insurance Providers Payer Name Payer Address Payer Phone Subscriber Number Group Number Insured Name Patient Relationship to Insured Coverage Start Date Coverage End Date MEDICARE [place] PART B [address] [employer] [facility] MERLYN KURTZ [id number] None Yordan Velez Self - patient is the insured 0 3 AARP [facility] MEDICARE SUPP ALL [place] [address] [place], [place] [phone] [id number] None Yordan Velez Self - patient is the insured 8 0 Medical (General) History Medical History History ICD Code HTN (hypertension) I10 Hyperlipidemia E78.5 Basal cell carcinoma C44.91 Actinic keratosis L57.0 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
== END 2025-04-23 11:42 | disposition home or self-care (01) ==
LOC: HO.HMCFM 08:27
PROVIDERS: PCP Nurse Practitioner Family; Visit Provider Nurse Practitioner Family
DX: I10 Essential (primary) hypertension (principal); R73.03 Prediabetes; R05.8 Other specified cough; Z13.9 Encounter for screening, unspecified

== ENCOUNTER → 2025-04-23 08:26 | Outpatient (BNVA) | payer MEDICARE, SELFPAY | PROVIDERS: PCP Nurse Practitioner Family; Visit Provider Nurse Practitioner Family | DX: I10 Essential (primary) hypertension (principal); J44.9 Chronic obstructive pulmonary disease, unspecified; R73.03 Prediabetes; R05.8 Other specified cough | CPT/HCPCS: 83036; 99212 ==

== ENCOUNTER 2025-06-05 14:26 | Outpatient (REF) | payer MEDICARE, SELFPAY ==
[2025-06-05 18:10] LABS: MANUAL DIFF FLAG NO
[2025-06-05 18:14] LABS: Hematocrit 43.7 % (42.0-52.0); Hemoglobin 15.0 g/dl (14.0-18.0); Imm Gran Abs Auto 0.02 X10*3/uL (0.00-0.03); Imm Gran Pct Auto 0.2 % (0.0-0.4); Lymphocytes Absolute Auto 3.6 X10*3/uL (1.2-4.9); Mean Corpuscular HGB Conc 34.3 g/dl (31.0-36.0); Mean Corpuscular Hemoglobin 30.2 pg (27.0-33.0); Mean Corpuscular Volume 87.9 fL (80.0-98.0); NRBC Abs Auto 0.000 X10*3/uL (0.0-0.012); NRBC Pct Auto 0.0 /100WBC (0.0-0.2); Platelet Count 354 X10*3/uL (160-400); Red Blood Count 4.97 X10*6/uL (4.60-5.80); White Blood Count 9.6 X10*3/uL (4.8-10.8)
[2025-06-10 14:54] LABS: Class Alternaria alternata 0; Class Aspergillus fumigatus 0; Class Bermuda Grass 0; Class Birch 0; Class Cat Dander 0; Class Cladosporium herbarum 0; Class Cockroach 0; Class Common Ragweed 0; Class Cottonwood 0; Class Derm. pterony 0; Class Dermatophagoides farinae 0; Class Dog Dander 0; Class Elm 0; Class Maple Box Elder 0; Class Mountain Cedar 0; Class Mouse Urine Protein 0; Class Mugwort 0; Class Oak 0; Class Penicillium crysogenum 0; Class Rough Pigweed 0; Class Sheep Sorrel 0; Class Sycamore 0; Class Timothy Grass 0; Class Walnut Tree 0; Class White Ash 0; Class White Mulberry 0; D002 - IgE D farinae <0.10 kU/L; E001 - IgE Cat Dander <0.10 kU/L; E005 - IgE Dog Dander <0.10 kU/L; G006 - IgE Timothy Grass <0.10 kU/L; I006-IgE Cockroach, German <0.10 kU/L; M002 - IgE Cladosporium herbar <0.10 kU/L; M003 - IgE Aspergillus fumigat <0.10 kU/L; M006 - IgE Alternaria alternat <0.10 kU/L; T001 IgE Maple/Box Elder <0.10 kU/L; T006 - IgE Cedar, Mountain <0.10 kU/L; T007 - IgE Oak, White <0.10 kU/L; T008 IgE Elm, American <0.10 kU/L; T010 - IgE Walnut <0.10 kU/L; T011 - IgE Maple Leaf Sycamore <0.10 kU/L; T014 - IgE Cottonwood <0.10 kU/L; T015 - IgE Ash, White <0.10 kU/L; T070 - IgE White Mulberry <0.10 kU/L; W001 - IgE Ragweed, Short <0.10 kU/L; W006 - IgE Mugwort <0.10 kU/L; W014 IgE Pigweed, Common <0.10 kU/L; W018 IgE Sheep Sorrel <0.10 kU/L
== END 2025-06-05 14:27 | disposition home or self-care (01) ==
LOC: HO.WFDLDS 14:26
PROVIDERS: PCP Nurse Practitioner Family; Referring Provider Nurse Practitioner Family; Visit Provider Nurse Practitioner Family
DX: R06.00 Dyspnea, unspecified (principal); Z91.09 Other allergy status, other than to drugs and biological substances
CPT/HCPCS: 36415; 82785; 85025; 86003; 99202

== ENCOUNTER 2025-06-05 14:26 | Outpatient (AMB) | payer MEDICARE, SELFPAY ==
[2025-06-05 14:32] VITALS: BP 100/54; PULSE 52; O2SAT 98; BMI 29.6
--- NOTE | 2025-06-05 14:32 | A.OFFVIS_ITS ---
Vital Signs 06/05/25 14:32 Height 5 ft 10 in Weight 206 lb 4 oz BMI 29.6 BP 100/54 L Blood Pressure Location Lt brachial Position Sitting Pulse 52 Pulse Source Pulse Oximeter Pulse Oximetry (%) 98 Oxygen Delivery Method Room Air Intake Visit Reasons: COPD Allergies bimatoprost (From Lumigan) Allergy (Intermediate, Verified 06/05/25 14:34) burning Penicillins Allergy (Intermediate, Verified 06/05/25 14:34) Rash HPI HPI COPD: Details: Yordan is a pleasant 80 year old male, former 10 pack year smoker, quit 60 years ago with underlying COPD and mild GUTIERREZ. He was referred by PCP for pulmonary evaluation. The patient was diagnosed with mild COPD approximately five to six years ago after presenting with recurrent bronchitis, although denies prior PFT. Currently, the patient experiences shortness of breath only with exertion, such as climbing more than one flight of stairs or attempting to run, but denies associated wheezing or coughing. The patient was initially prescribed an as- needed inhaler. Following a recent episode of bronchitis in December or January of this year, the patient began using the albuterol inhaler prophylactically on a daily basis. The patient is unsure if the daily use is beneficial and reports a persistent dry cough since the infection that has not improved with the inhaler. The patient's past pulmonary history is significant for a spontaneous pneumothorax as a teenager, which recurred at age 20 or 21 and required surgery on the right lung. A CT scan in 2019, compared to 2017, showed a stable 3.6 mm pulmonary nodule and bronchiectasis of the right lung. Denies any further imaging. The patient denies significant secondhand smoke or occupational exposures. A sleep study in 2022 diagnosed mild obstructive sleep apnea with an AHI of 9, but the patient declined CPAP therapy. The patient reports seasonal allergies managed with daily Zyrtec. [facility] Medical History (Updated 06/05/25 @ 14:59 by Marcela Porter NP) Ruptured appendix Pneumothorax Surgical History (Updated 01/29/25 @ 13:42 by CARIE Bettencourt) Cholecystotomy with removal of foreign body from gallbladder performed Family History Maternal Grandmother Diabetes Father Stroke (cerebrum) Maternal Grandfather Cardiovascular disease Paternal Grandfather Leukemia Social History (Updated 06/05/25 @ 14:33 by Dee Dee Brady [facility]) Housing: Apartment Alcohol intake: current Patient Tobacco Use Status: Former Tobacco user e-Cigarette/Vaping Use: Never Used Second Hand Smoke Exposure: No service: No Current occupational status: retired Current occupational exposures/hazards: No Cognitive needs: No Hearing needs: Yes Vision needs: Yes Review of Systems Const Denies chills, Denies excessive sweating, Denies fever(s), Denies headache(s) and Denies night sweats Eyes Denies dry eyes and Denies irritation ENT Reports Normal hearing present, Denies headache(s), Denies nasal congestion, Denies nasal discharge and Denies sore throat Card Denies chest pain, Denies chest pain at rest, Denies chest pain with activity, Denies claudication, Denies leg edema, Denies dyspnea, Denies orthopnea and Denies paroxysmal nocturnal dyspnea Resp Denies chest congestion, Denies excessive phlegm production, Denies pain on inspiration, Denies pain with cough, Denies dyspnea, Denies stridor and Denies wheezing Musc Denies myalgias Neuro Reports Normal hearing present and Denies headache(s) Endo Denies excessive sweating Mj/Lymph Denies lymphadenopathy Aller/Immun Denies seasonal rhinorrhea and Denies wheezing Physical Exam Vital Signs: Last Vital Signs Pulse 52 06/05/25 14:32 BP 100/54 L 06/05/25 14:32 Pulse Ox 98 06/05/25 14:32 Oxygen Delivery Method Room Air 06/05/25 14:32 BMI result Body Mass Index 29.6 Const General: cooperative, healthy appearing, comfortable, no acute distress, well developed and alert Orientation/consciousness: patient oriented x3 Limitations: no limitations HEENT Head: Yes normal to inspection, Yes normocephalic and Yes atraumatic Ears: hearing grossly normal bilaterally and external ears normal Eyes General: appearance normal, both eyes and all related structures Eyelids: Yes eyelids normal Sclerae: sclerae normal EOM: EOMs intact bilaterally Neck Neck: Yes normal visual inspection and Yes no lymphadenopathy Lymphatic: no lymphadenopathy noted Chest Chest palpation & inspection: normal inspection of the chest Resp Other: inspiratory crackles RLL Effort & Inspection: normal respiratory effort, able to speak in complete sentences, no audible wheezes, no cough, no stridor, not tachypneic, no tripod p ositioning and no use of accessory muscles Cardio Jugular venous distension: no JVD Rate: regular rate Rhythm: regular rhythm Skin Other: warm, dry General skin exam: no rashes or lesions noted Neuro General: patient oriented x3 Cranial nerves: Yes Normal hearing present Cognition (Neuro): normal cognition Gait exam (Neuro): Normal gait present Extrem General: Yes normal to inspection, Yes capillary refill normal, Yes no clubbing, cyanosis or edema and Yes no pedal edema Psych Appearance: grossly normal and well kempt Speech and movement: Normal speech and movement present and Clear speech present Affect: normal affect Attitude: cooperative Thought process: Normal thought process present Thought content: Normal thought content present Insight: Good insight present (Psych) Judgement: Good judgement present (Psych) Assessment & Plan Assessment & Plan (1) Dyspnea: Code(s): R06.00 - Dyspnea, unspecified Category: Medical (2) Environmental allergies: Code(s): Z91.09 - Other allergy status, other than to drugs and biological substances Category: Medical Plan The patient presents with exertional dyspnea and a persistent cough, with a history of a COPD diagnosis. However, given the minimal smoking history and prolonged cough after a respiratory infection, uncontrolled asthma is also a consideration. The plan is to order a full pulmonary function test to assess for obstructive lung disease and bronchodilator response, which will help differentiate between COPD and asthma. A chest X-ray will be obtained for an updated view of the lungs as patient with inspiratory crackles of RLL, consistent with scarring noted on prior CT. Allergy testing will also be ordered to identify potential triggers. Depending on the test results and symptom burden, a daily maintenance inhaler may be recommended for symptom control. All questions were answered and patient is in agreement of plan. Follow-up will be scheduled for August to review the results. Orders: Orders Immunoglobulin E Today Z91.09 - Other allergy status, other than to drugs and biological substances Resp Allergy Profile Region I Today Z91.09 - Other allergy status, other than to drugs and biological substances PFT pulmonary function test Today R06.00 - Dyspnea, unspecified XR chest 2V Today R06.00 - Dyspnea, unspecified Complete Blood Count Auto Diff Today Z91.09 - Other allergy status, other than to drugs and biological substances Coding Level of Care Code New Pt Level 4 (36712) Diagnoses Dyspnea R06.00 Environmental allergies Z91.09
--- OUTSIDE RECORDS SUMMARY | 2025-06-05 17:17 | XMS_ITS | Clinical Summary ---
Author Organization [facility] Address [address] [facility] [address] [place] [address] Phone Care Team Providers Care Presser And Shaper Knitted Goods Name Role Phone Anand Sarmiento MD Primary [...] file Insurance MEDICARE PART A & B [id number] [place] [address] MEDICARE SUPPLEMENT MEDICARE PART A & B [facility] MEDICARE SUPPLEMENT MEDICARE PART A & B MEDICARE SUPPLEMENT MEDICARE PART A & B MEDICARE SUPPLEMENT MEDICARE PART A & B [facility] MEDICARE SUPPLEMENT MEDICARE PART A & B Member Subscriber Plan / Payer (Ef fective 2009-Present) Name:Yordan Velez Member ID:[id number] Relation to Subscriber:Self Name:Yordan Velez Subscriber ID:[id number] Payer ID:[id number] Group ID:Not on file Type:Medicare Address: [employer] [address] MEDICARE SUPPLEMENT MEDICARE PART A & B [facility] MEDICARE SUPPLEMENT MEDICARE PART A & B Member Subscriber Plan / Payer (Ef fective 2009-Present) Name:Yordan Velez Member ID:[id number] Relation to Subscriber:Self Name:Yordan Velez Subscriber ID:[id number] Payer ID:[id number] Group ID:Not on file Type:Medicare Address: [employer] [address] MEDICARE SUPPLEMENT MEDICARE PART A & B Member Subscriber Plan / Payer (Ef fective 2009-Present) Name:Yordan Velez Member ID:[id number] Relation to Subscriber:Self Name:Yordan Velez Subscriber ID:[id number] Payer ID:[id number] Group ID:Not on file Type:Medicare Address: [employer] [address] [place] [id number] [facility] MEDICARE SUPPLEMENT Care Teams Presser And Shaper Knitted Goods Relationship Specialty Start Date End Date Anand Sarmiento MD [address] [facility] [address] [place] [address] PCP - General 04/20/19 Additional Source Comments The information contained in this document represents components of the legal health record. It is not the complete legal health record.[facility]
== END 2025-06-05 15:12 | disposition home or self-care (01) ==
LOC: HO.HPSW 14:27
PROVIDERS: PCP Nurse Practitioner Family; Referring Provider Nurse Practitioner Family; Visit Provider Nurse Practitioner Family
DX: R06.00 Dyspnea, unspecified (principal); Z91.09 Other allergy status, other than to drugs and biological substances
CPT/HCPCS: 99204

== ENCOUNTER 2025-07-09 09:53 | Outpatient (REF) | payer MEDICARE, SELFPAY ==
--- OUTSIDE RECORDS SUMMARY | 2025-06-12 11:00 | XMS_ITS ---
Author Organization [facility] Billing Info Address [address] [place] [address] Phone [phone] Care Team Providers Care Java Developer Name Role Phone MANJIT HOYTLORI Primary Care Provider [phone] DIDIER SAUCEDO, SASHA Unavailable [phone] HELENE SAUCEDO, HUSSEIN Unavailable [phone] REASON FOR VISIT 1 year f/u ILD, 06/11/24, Social History Sex Observation Social History Observation Description Sex Observation Male Encounters Date Time Type Facility Location Provider Diagnosis 06/12/2025 10:00 AM Office Visit [id number] [address] [facility] [address] [place] [address] HUSSEIN NARAYAN Plan Of Treatment No Information Medical (General) History Medical History History ICD Code HTN (hypertension) I10 Hyperlipidemia E78.5 Basal cell carcinoma C44.91 Actinic keratosis L57.0 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 1 year f/u ILD, 06/11/24, * Medical History: Objective: * Vitals: Assessment: Plan: * Treatment: * Care Plan Details* * This progress note has not b een verified nor is it considered complete until locked and signed by the provider. Sign off status: Pending * Provider: Wesley NARAYAN MD Date: 08/13/2024 Generated for Tommy read/Wang/Jamshidsmitting on: 11:51 AM SENIOR DATA MINING ANALYST
--- NOTE | ~2025-07-09 | XR_ITS ---
EXAMINATION: XR CHEST CLINICAL INFORMATION: R06.00 - Dyspnea, unspecified COMPARISON: None available. TECHNIQUE: 2 views of the chest were obtained. FINDINGS: The cardiac, hilar, and mediastinal contours are normal. Aortic mural calcification and mild tortuosity. Mild prominence of the aortic root. Lungs demonstrate biapical pleural parenchymal thickening/scarring. Lungs otherwise clear. There is no pneumothorax or pleural effusion. There is no focal osseous or soft tissue abnormality. There are cholecystectomy clips present. XR/XR chest 2V IMPRESSION: No active pulmonary disease. Electronically signed by: Brett Thompson MD 07/09/2025 10:55 AM EST
--- NOTE | 2025-07-09 09:55 | PFT_ITS ---
Spirometry [] Lung Volumes [] Diffusion Capacity [] Methacholine Challenge [] Flow Volume Loops [] MVV [] MIP/MEP(Max inspiratory pressure/Max expiratory pressure) [] 6 Minute Walk Test [] ABG [] Interpretation [] MTDD
[2025-07-09 10:37] VITALS: PULSE 50
--- OUTSIDE RECORDS SUMMARY | 2025-07-09 12:51 | XMS_ITS | Clinical Summary ---
Author Organization [facility] Address [address] [facility] [address] [place] [address] Phone Care Team Providers Care Professional Sports Scout Name Role Phone Anand Sarmiento MD Primary [...] file Insurance MEDICARE PART A & B [id number] [place] [address] MEDICARE SUPPLEMENT MEDICARE PART A & B [facility] MEDICARE SUPPLEMENT MEDICARE PART A & B MEDICARE SUPPLEMENT MEDICARE PART A & B MEDICARE SUPPLEMENT MEDICARE PART A & B [facility] MEDICARE SUPPLEMENT MEDICARE PART A & B Member Subscriber Plan / Payer (Ef fective 2009-Present) Name:Yordan Velez Member ID:[id number] Relation to Subscriber:Self Name:Yordan Velez Subscriber ID:[id number] Payer ID:[id number] Group ID:Not on file Type:Medicare Address: [employer] [address] MEDICARE SUPPLEMENT MEDICARE PART A & B [facility] MEDICARE SUPPLEMENT MEDICARE PART A & B Member Subscriber Plan / Payer (Ef fective 2009-Present) Name:Yordan Velez Member ID:[id number] Relation to Subscriber:Self Name:Yordan Velez Subscriber ID:[id number] Payer ID:[id number] Group ID:Not on file Type:Medicare Address: [employer] [address] MEDICARE SUPPLEMENT MEDICARE PART A & B Member Subscriber Plan / Payer (Ef fective 2009-Present) Name:Yordan Velez Member ID:[id number] Relation to Subscriber:Self Name:Yordan Velez Subscriber ID:[id number] Payer ID:[id number] Group ID:Not on file Type:Medicare Address: [employer] [address] [place] [id number] [facility] MEDICARE SUPPLEMENT Care Teams Professional Sports Scout Relationship Specialty Start Date End Date Anand Sarmiento MD [address] [facility] [address] [place] [address] PCP - General 04/20/19 Additional Source Comments The information contained in this document represents components of the legal health record. It is not the complete legal health record.[facility]
--- OUTSIDE RECORDS SUMMARY | 2025-07-09 12:52 | XMS_ITS | Patient Health Record ---
Author Organization [facility] Billing Info Address [address] [place] [address] Phone [phone] Care Team Providers Care Lan Engineer Name Role Phone MANJITJean HOYTLORI Primary Care Provider DIDIER SAUCEDO, SASHA Unavailable HUSSEIN NARAYAN MD Unavailable [phone] Allergies Allergen (clinical drug ingredient) Drug/Non Drug Allergy documented on EMR Reaction Allergy Type Onset Date Status DUST MITES Unknown Drug Allergy Active SEASONAL ALLERGIES Unknown Drug Allergy Active Penicillin swelling.Rash Drug Allergy Ac tive Reason For Referral No Information Medications Medication SIG (Take, Route, Frequency, Duration) Notes Start Date End Date Diagnosis (ICD Code) Status Multivitamins Capsule Orally Ac tive Calcium 500 MG Tablet 1 tablet with meals Orally Twice a day Active Aspirin 81 MG Tablet 1 tablet Orally 3 times a week mon,wedn, fri Active Rhopressa 0.02 % Solution 1 drop into affected eye in the evening Ophthalmic Once a day Active Albuterol Sulfate HFA 108 (90 Base) MCG/ACT Aerosol Solution 2 puffs Inhalation every 4 hrs; Duration: 30 days 5 Active Probiotic & Acidophilus Ex St - Capsule as directed Orally Active Telmisartan 80 MG Tablet 1 tablet Orally Once a day; Duration: 90 days 5 Active Cetirizine HCl 10 MG Tablet 1 tablet Orally Once a day; Duration: 30 day(s) Active Simvastatin 20 MG Tablet TAKE 1 TABLET EVERY EVENING; Duration: 90 Active Hydrochlorothiazide 25 MG Tablet TAKE 1 TABLET ONCE DAILY INTHE MORNING; Duration: 90 Active Amlodipine Besylate 5 MG Tablet 1 tablet Orally Once a day; Duration: 90 days 5 Essential (primary) hypertension (ICD_10 - I10) Active Fluticasone Propionate 50 MCG/ACT Suspension 1 spray in each nostril Nasally Once a day; Duration: 30 day(s) Active Fish Oil 1200 MG Capsule Delayed Release 1 capsule Orally Once a day Active Dorzolamide HCl 2 % Solution 1 drop into affected eye Ophthalmic Three times a day Active Vitamin D-3 1000 UNIT Capsule 2 capsules Orally Once a day Active Vitamin B-12 500 MCG Tablet 1 tablet Orally weekly Active Magnesium Oxide 500 MG Capsule 1 capsule Orally Daily Active Immunizations Status Vaccine Route Administration Date Visit Date Comments Administered COVID-19 Non-US (Past vaccine of unknown type) IM Intramuscular 04/09/2024 FLU (Past vaccine of unknown type) IM Intramuscular 2023 RSV recombinant (Arexvy) 60+ yrs IM Intramuscular 06/16/20 23 zFLU 4V (FLUAD QUAD), 65yrs+, NO PRES - ALL PAYORS IM Intr amuscular 04/23/2021 zFLU 4V (FLUZONE HIGH DOSE Q UAD), 65yrs+, NO PRES - ALL PAYORS IM Intramuscular 05/08/2020 ZOSTER (SHINGRIX) IM Intramuscular 11/16/2018 zFLU 3V (FLUZONE HIGH DOSE), 65 YRS+, NO PRES - ALL PAYORS IM Intramuscular 04/25/2018 zFLU 3V (FLUZONE HIGH DOSE), 65 YRS+, NO PRES - ALL PAYORS IM Intramuscular 04/21/2017 zFLU 4V (FLUZONE QUAD), 3 YR S+, WITH PRES - ALL PAYORS IM Intramuscular 04/20/2016 zFLU 4V (FLUZONE QUAD), 3 YR S+, WITH PRES - ALL PAYORS IM Intramuscular 05/13/2015 PNEUMOCOCCAL 13 CONJ (RIUUDDV28) IM Intramuscular 05/13/20 15 zZOSTER (Past vaccine of unknown type)121 Unknown 07/11 PNEUMOCOCCAL (Past vaccine of unknown type) Unknown 07/2011 Social History Tobacco Use: Social History Observation Description Date Details (start date - stop date) Former Smoker NA - NA Sex Observation Social History Observation Description Sex Observation Male Social History Social History Social Info Question Answer Notes Tobacco Status: Patient is a former smoker 11/13/24 number of years 10 packs per day 1 Illicit Drug Use: Patient/Family reports: No illicit d rug use Alcohol Use: Patient uses alcohol Drinks per occasion: 1 Drinks per week: 0 Additional Details Category Social Info Options Details Social History Occupation/Work: retired Exercise: regular exercise , cardio, strength training Caffeine: 2 cups coffee da no Marital Status: Drugs: none Problems Problem Type SNOMED Code ICD Code Dates Problem Status W/U Status Risk Notes Problem Essential hypertension (20754153) Essential (primary) hypertension (I10) Added On: 5 Active confirmed Problem Mucopurulent chronic bronchitis (64163112) Mucopurulent chronic bronchitis (J41.1) Added On: 7 Active confirmed No episodes in last 12 months. No symptoms of daily cough or sputum production. His last PFT did not show any fixed obstructive airway disease. He can continue to use albuterol on a p.r.n. basis though he has not required it at all in last 1 year. He will contact us if he notices any new onset symptoms. Problem Cough (76325699) Cough (R05) Added On: 7 Active confirmed Problem Osteoporosis (97467061) Osteoporosis (M81.0) Added On: 6 Active confirmed Problem Annual wellness visit (726870193249907) Medicare annual wellness visit, subsequent (Z00.00) Added On: 9 Active confirmed Problem Hematuria (72819121) Hematuria (R31.9) Added On: [address] Mcclure - cystoscopy not done Problem Obstructive sleep apnea syndrome (33863881) GUTIERREZ (obstructive sleep apnea) (G47.33) Added On: 4 Active confirmed Mild obstructive sleep apnea with AHI of 9.0 for which she has chosen weight loss and would not prefer any definitive therapy such as CPAP. Problem Bronchitis (23438243) Bronchitis (J40) Added On: 7 Active confirmed Problem Essential hypertension (35463545) Essential hypertension (I10) Added On: 6 Active confirmed Problem Rhinorrhea (17259397) Rhinorrhea (J34.89) Added On: 7 Active confirmed Problem History of malignant melanoma of the skin (166054980759) History of melanoma (Z85.820) Added On: 2 Active confirmed Problem Pulmonary nodule (048870914) Pulmonary nodule (R91.1) Added On: [address] scan followed small pulmonary nodules and minimal interstitial changes serially. Clinically no new symptoms. He would prefer not to do any more imaging studies. Problem Parietoalveolar pneumopathy (54980596) ILD (interstitial lung disease) (J84.9) Added On: 7 Active confirmed Minimal changes on the last CT scan of chest in 2019 which appears more of scarring. He declined any further evaluation as long as he is asymptomatic. Currently no new symptoms. Discussed again in detail. He would prefer to be monitored clinically without any imaging studies at this time. Problem Lower urinary tract symptoms due to benign prostatic hypertrophy (28296180895777) Benign non-nodular prostatic hyperplasia with lower urinary tract symptoms (N40.1) Added On: 6 Active confirmed Problem Decreased diffusion capacity of lung (finding) (81545793) Diffusion capacity of lung (dl), decreased (R94.2) Added On: 7 Active confirmed Clinically a very stable course. Will continue to monitor without any PFT at this time. Problem Allergic rhinitis caused by pollen (43971329) Seasonal allergic rhinitis due to pollen (J30.1) Added On: 7 Active confirmed Problem Pure hypercholesterolemi a (223917848) Pure hypercholesterol emia (E78.00) Added On: 6 Active confirmed Problem Abnormal liver function (73547395) Abnormal liver function (R94.5) Added On: 0 Active confirmed Vital Signs Vital Sign Value Notes Appt Date Heart Rate 57 /min 11/13/2024 Temperature 97.5 degrees Fahrenheit 12/2024 Oximetry 97 11/13/2024 Blood pressure diastolic 78 mm Hg 12/2024 Height 70 in 11/13/2024 Blood pressure systolic 110 mm Hg 05/0 12/2024 Weight 204.4 lbs 11/13/2024 BMI 29.33 kg/m2 11/13/2024 Encounters Date Time Type Facility Location Provider Diagnosis 5 09:02 AM Telephone Encounter [id number] [place] [address] [facility] [address] [place], [place] [id number] SASHA CHHOKER Essential (primary) hypertension I10 5 08:38 AM Telephone Encounter [id number] [place] [address] [place] [address] [facility] 5 04:26 PM Telephone Encounter [id number] [place] [address] [place] [address] [facility] 5 01:21 PM Telephone Encounter [id number] [place] [address] [facility] [address] [place], [place] [id number] SASHA CHHOKER Essential (primary) hypertension I10 5 09:00 AM Office Visit [id number] [place] [address] [facility] [address] [place], [place] [id number] SASHA CHHOKER Annual wellness visit Z00.00 and Essential (primary) hypertension I10 5 08:00 AM OFFICE/OUTPAT IENT VISIT EST ([id number]) [address] [place] [address] [facility] [address] [place], [place] [id number] SASHA CHHOKER Essential (primary) hypertension I10 5 10:30 AM OFFICE/OUTPAT IENT VISIT EST (08847) [address] [place] [address] [facility] [address] [place], [place] [id number] SASHA CHHOKER Essential (primary) hypertension I10 Assessments Encounter Date Diagnosis (ICD Code) Assessment Notes Treatment Notes Section Notes 09/07/2024 Essential (primary) hypertension (ICD-10 - I10) 01/01/2025 Essential (primary) hypertension (ICD-10 - I10) 07/31/2024 Essential (primary) hypertension (ICD-10 - I10) Elevated blood pressure at home consistently. Plan: -continue telmisartan and hydrochlorothiazide -started amlodipine 2.5 mg daily -follow up in 5 weeks -advised the patient to keep blood pressure log at home, bring blood pressure machine and cuff during the next visit 09/04/2024 Annual wellness visit (ICD-10 - Z00.00) -patient is up-to-date on vaccines -patient is up-to-date on cancer screening and is no longer on colonoscopy-PSA was normal 11/13/2024 Essential (primary) hypertension (ICD-10 - I10) Blood pressure within goal. Plan: -continue amlodipine 5 mg daily, telmisartan and hydrochlorothiazide-repo rted no syncope, presyncope or other major side effects-follow up in 6 months 09/04/2024 Essential (primary) hypertension (ICD-10 - I10) Plan: -continue telmisartan, and hydrochlorothiazide -increase amlodipine to 5 mg daily-continue monitoring home blood pressure-follow up in 10 weeks 07/31/2024 Other Medical service s provided as [...] ) 11/23/2019 LACTOFERRIN STOOL(PRHP-LACTOFER) 019 LIPID PROFILE(PRHP-LIPID) 05/21/2016 LIPID PROFILE(PRHP-LIPID) 07/24/2019 PROSTATE SPECIFIC AG(PRHP-PSA) 0 PROSTATE SPECIFIC AG(PRHP-PSA) 6 PROSTATE SPECIFIC AG(PRHP-PSA) 9 UA URINALYSIS WITHOUT REFLEX TO CX(PRHP- UA) 09/06/2016 UA URINALYSIS WITHOUT REFLEX TO CX(PRHP- UA) 07/24/2019 MAMMO- MA DEXA BONE DENS AXIAL (77564)(P RHP-DEXDUAL) 09/12/2017 MAMMO- MA DEXA BONE DENS AXIAL (04051)(P RHP-DEXDUAL) 11/09/2018 MAMMO- MA DEXA BONE DENS AXIAL (11363)(P RHP-DEXDUAL) 11/25/2020 STOOL CULTURE(PRHP-STOOLC) 01/01/2019 COMPREHENSIVE METABOLIC PANEL(PRHP-COMPP NL) 07/24/2019 BASIC METABOLIC PANEL(PRHP-BASIC) 2015 SHIGA TOXIN PRODUCING ECOLI(PRHP-SHIGATO THUY) 01/01/2019 C DIFFICILE SCREEN(PRHP-CDSCRT) 01/02/20 19 GIARDIA AND CRYPTOSPORIDIUM ANTIGEN PANE L(Q-79957) 01/01/2019 SL- HOME SLEEP TEST (MTOE) (00112) (PRHP -HSTUNATT) 12/21/2022 TSH REFLEX TO FT4 (PRHP-TSHRFX4) 023 Insurance Providers Payer Name Payer Address Payer Phone Subscriber Number Group Number Insured Name Patient Relationship to Insured Coverage Start Date Coverage End Date MEDICARE [place] PART B [address] [employer] [facility] [id number] None Yordan Velez Self - patient is the insured 0 3 [facility] MEDICARE SUPP/18[address] [facility] [place] [place] [id number] None Yordan Velez Self - patient is [...]
--- OUTSIDE RECORDS SUMMARY | 2025-07-09 12:52 | XMS_ITS | Clinical Summary ---
Author Organization [facility] Address [address] [place] [address] Care Team Providers Care Online Merchant Name Role Phone Torsten Moy MD, Anand Primary Care Provider Allergies Active Allergy Reactions Criticality Noted Date Comments Penicillins Rash Low 09/03/2015 Medications JUBLIA 10 % Mir solution 1 5 Active chlorhexidine (PERIDEX) 0.12 % solution 0 6 Active valsartan-hydro chlorothiazide (DIOVAN-HCT) 320-12.5 mg per tablet 0 5 Active simvastatin (ZOCOR) 10 MG tablet Take 10 mg by mouth at bedtime. Active triamcinolone (KENALOG) 0.025 % cream Apply topically Every morning and every evening. Active aspirin 81 MG EC tablet Take 81 mg by mouth daily. Active cholecalciferol , vitamin D3, 1,000 unit capsule Take 1,000 Units by mouth daily. Active fish oil-omega-3 fatty acids 300-1,000 mg capsule Take 2 g by mouth daily. Active multivitamin per tablet Take 1 tablet by mouth daily. Active cyanocobalamin (VITAMIN B-12) 1000 MCG tablet Take 1,000 mcg by mouth daily. 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 Family History Medical History Relation Comments Heart disease Father Hypertension Father Cancer Paternal Aunt Relation Status Comments Father Paternal Aunt Social History Tobacco Use Types Packs/Day Years Used Date Smoking Tobacco: Former Alcohol Use Standard Drinks/Week Comments Yes 0 (1 standard drink = 0.6 oz pur e alcohol) Sex and Gender Information Value Date Recorded Sex Assigned at Not on file Legal Sex Male 8:47 AM EST Gender Identity Not on file Sexual Orientation Not on file Plan of Treatment Not on file Insurance MEDICARE [facility] Care Teams Online Merchant Relationship Specialty Start Date End Date Anand Sarmiento Jr., MD [address] [place] [address] [address] [place] [address] PCP - General Internal Medicine 08/29/15
--- OUTSIDE RECORDS SUMMARY | 2025-07-09 12:52 | XMS_ITS | Patient Health Record ---
Author Organization [facility] Address [address] [place] [address] Reason For Referral No Information Plan Of Treatment No Information
== END 2025-07-09 09:54 | disposition home or self-care (01) ==
LOC: HO.RESP 09:53
PROVIDERS: PCP Nurse Practitioner Family; Visit Provider Nurse Practitioner Family
DX: R06.00 Dyspnea, unspecified (principal)
CPT/HCPCS: 71046; 94060; 94640; 94727; 94729

== ENCOUNTER → 2025-07-09 09:55 | Outpatient (BNV) | payer MEDICARE, SELFPAY | PROVIDERS: PCP Nurse Practitioner Family; Visit Provider Internal Medicine Pulmonary Disease | DX: R06.00 Dyspnea, unspecified (principal) | CPT/HCPCS: 94060; 94727; 94729 ==

== ENCOUNTER → 2025-07-09 10:34 | Outpatient (BNV) | payer MEDICARE, SELFPAY | PROVIDERS: PCP Nurse Practitioner Family; Visit Provider Radiology Diagnostic Radiology | DX: R06.00 Dyspnea, unspecified (principal) | CPT/HCPCS: 71046 ==